=== PATIENT | male | born 1955 | race Caucasian/White ===

== ENCOUNTER → 2023-05-12 08:41 | Outpatient (CLI) | payer MEDICARE, SELFPAY ==
--- NOTE | 2023-05-12 08:50 | MR_ITS ---
FINAL REPORT CLINICAL HISTORY: ABDOMINAL AORTIC ANEURYSM. TINGLING ON LEFT SIDE OF BODY AND RIGHT HAND. FATIGUE FINDINGS: Multiplanar MR imaging of the brain was performed without contrast. There are mild chronic ischemic/gliotic changes. There is no evidence of intracranial hemorrhage or mass. The ventricular size is normal. There is no evidence of shift of the midline structures. No area of restricted diffusion is identified. The posterior fossa and brainstem have an unremarkable appearance. Normal major vessel vascular flow voids are seen. Mucosal thickening is seen of multiple sinuses. IMPRESSION: No acute intracranial abnormality. Reviewed, Interpreted and Dictated by Nahid Ashley III, MD Transcribed by Emi Amos Authenticated and [facility]
== END ==
LOC: RAD 08:42
PROVIDERS: PCP Nurse Practitioner Family; Visit Provider Nurse Practitioner Family
DX: I71.40 Abdominal aortic aneurysm, without rupture, unspecified (principal)
CPT/HCPCS: 70551

== ENCOUNTER 2024-09-19 09:27 | Outpatient (POV) | payer MEDICARE, SELFPAY ==
--- NOTE | 2024-09-19 09:43 | A.OFFVIS_ITS ---
HPI Data of Consult Patient: new to practice Consult date: 09/19/24 Requesting Physician: Tania Burrell APRN Primary Care Provider: Rico Bradshaw APRN Consult Narrative History of present illness: Mr. Draper is a 69 year old male who presents today as a new patient. He is a referral from [facility]. Today he rates his pain an 8 out of 10. Patient states his pain is all throughout his neck with radiating symptoms primarily along the left side that does go into his left shoulder and does state that he even has more drawing up sensations primarily into his left hand. Patient states this has been going on for at least 6 months if a lot longer and describes it as a sharp stabbing sensation that does interfere with his ability perform activities of daily living such as cooking and cleaning. He states he has limited range of motion in his neck and does have trouble sleeping due to the worsening pain and has a lot of difficulty getting comfortable due to the sensations. He states it is pretty much constant and that the neurosurgeon was not recommending surgical intervention however wanted to try more conservative t herapies. Patient states he has had injections in his low back in the past and they did help however denies any neck injections. Patient has tried heat and vibration and states this does help a little bit. He states he has tried ice but it did not seem to do his well and has not used this option as much. He has tried topicals with some help. Patient is on gabapentin and states this helps a little bit. He does state that he feels like both his hands have very poor manager furniture and that he frequently drops things. Patient does state that he was on other medications in the past however had kidney issues and had to stop taking those. He has been to chiropractor for his neck however felt like it made no additional change and it did actually worsen his pain. He has continued at home stretching exercise that was physician guided with no additional changes.Patient is currently managed with gabapentin from his PCP. His Tenzin has been reviewed and is appropriate. CC: Tania Burrell APRN [facility] Disclaimer: The information contained in this section may have been updated after the patient was seen, as this information can be updated by other users. Medical History (Updated 09/19/24 @ 10:12 by Tania Burrell APRN) History of aneurysm Neck pain Hyperlipidemia Hypertension Diabetes Anxiety Family History (Updated 08/02/23 @ 09:29 by Makenzie Casey) Other Cancer Coronary artery disease Diabetes Heart attack Social History (Updated 08/02/23 @ 09:30 by Makenzie Casey) Smoking Status: Former smoker alcohol intake: current alcohol intake frequency: holidays/special occasions only substance use type: denies use current occupational status: retired Travel in the last 8 weeks: None household members: spouse housing: house marital status: Review of Systems Review of Systems Review of systems:: pertinent systems reviewed and negative unless documented below Review of systems (narrative): Review of Systems: General: No recent weight changes, no fever, no sleep disturbances Respiratory: No cough, no shortness of air, no recurring pulmonary infections Cardiovascular/peripheral vascular: No chest pain, no palpitations, no edema, no shortness of breath Gastrointestinal: No new onset incontinence, normal bowel movements reported Genitourinary: No new onset incontinence Musculoskeletal: Neck pain, left shoulder pain, bilateral hand weakness, poor manager furniture Psychiatric: [Normal mood/affect] Neurological: [Denies weakness in extremities], [denies balance issues] Meds Home Medications and Allergies Home Medications ?Medication ?Instructions ?Recorded ?Confirmed ?Type albuterol sulfate 90 mcg/actuation 2 puff inhalation PRN 08/02/23 08/02/23 History aerosol inhaler atorvastatin 20 mg tablet 20 mg PO HS 08/02/23 08/02/23 History cholecalciferol (vitamin D3) 125 125 mcg PO DAILY 08/02/23 08/02/23 History mcg (5,000 unit) capsule ergocalciferol (vitamin D2) 1,250 50,000 unit PO WEEKLY 08/02/23 08/02/23 History mcg (50,000 unit) capsule (Vitamin D2) famotidine 40 mg tablet 40 mg PO DAILY 08/02/23 08/02/23 History fenofibrate 160 mg tablet 160 mg PO DAILY 08/02/23 08/02/23 History levocetirizine 5 mg tablet 5 mg PO DAILY 08/02/23 08/02/23 History linagliptin 5 mg tablet (Tradjenta) 5 mg PO DAILY 08/02/23 08/02/23 History lisinopril 5 mg tablet 5 mg PO DAILY 08/02/23 08/02/23 History metoprolol succinate 25 mg 25 mg PO DAILY 08/02/23 08/02/23 History tablet,extended release 24 hr multivitamin 1 tab PO DAILY 08/02/23 08/02/23 History sildenafil 50 mg tablet 50 mg PO DAILY PRN 08/02/23 08/02/23 History terazosin 10 mg capsule 10 mg PO DAILY 08/02/23 08/02/23 History New Prescriptions to Start Prescriptions: Allergies Allergy/AdvReac Type Severity Reaction Status Date / Time No Known Allergies Allergy Unverified 08/02/23 09:18 Objective Narrative: Physical Exam: General: Alert and oriented x3, no acute distress, pleasant and cooperative Lungs: Respirations even and unlabored, symmetrical chest expansion Eyes: PERRL Musculoskeletal: Flexion and extension of cervical [spine] somewhat guarded secondary to pain, [antalgic gait noted] positive Spurling's test Neurological: Speech clear, no gross sensory deficit Additional findings Additional findings: [facility] imaging September 05, 2024 MRI cervical spine without contrast findings C2-C3 level shows no evidence of disc herniation infection or spinal stenosis. Neuroforamina patent. C3-C4 level shows degenerative disc without focal disc herniation or central spinal stenosis. Mild bilateral foraminal stenosis. C4- C5 level shows degenerative disc disease without focal disc herniation or central spinal stenosis. Mild bilateral foraminal stenosis. C5-C6 level shows left-sided disc herniation impinging on the left C6 nerve root. Mild right, moderate left foraminal stenosis. C6 or C7 level shows disc herniation indenting the anterior aspect of the thecal sac. Moderate bilateral foraminal stenosis. C7-T1 level shows degenerative disc disease without focal disc hernia tion or central canal stenosis. Neuroforamina patent. T1-2 level shows no evidence of disc herniation or spinal stenosis. Neuroforamina patent Assessment and Plan *Assessment and plan (1) Degenerative disc disease, cervical: Status: Acute Category: Medical Code(s): M50.30 - Other cervical disc degeneration, unspecified cervical region (2) Cervical radiculopathy: Status: Acute Category: Medical Code(s): M54.12 - Radiculopathy, cervical region (3) Cervical nerve root impingement: Status: Acute Category: Medical Code(s): G54.2 - Cervical root disorders, not elsewhere classified Plan Patient is experiencing worsening pain in their neck with radiating primarily into the left upper extremity however does have symptoms into the right as well with tingling sensations and drawing up with weak manager furniture. Patient did have limited range of motion of her cervical spine with a positive Spurling's test. I did discuss with the patient that I do believe they would benefit from a cervical epidural steroid injection. Risk and benefits were discussed with patient and they would like to proceed forward with this plan of care. Patient has tried and failed conservative therapy including oral medications, heat and ice, topicals, at home stretching exercise for longer than 12 weeks that was physician guided. Patient has not had any cervical epidurals in the past. Patient's most recent imaging did show nerve root impingement. Patient will be scheduled for a GOLRY C5-C6 under fluoroscopy. Patient denies any blood t hinners. Patient has been instructed to contact the clinic with any concerns before the next appointment. Dr. Rowland has reviewed this note and agrees with this plan of care. This note was dictated using voice recognition software and make contain errors or omissions. All injections are used with Lidocaine, Bupivacaine and Depo Medrol. Occasionally urine drug screen is needed to verify patient's compliance with our office pain contract. This is ordered based off specific treatments related to chronic pain with the potential to abuse certain medications.
[2024-09-19 10:07] VITALS: BP 162/80; PULSE 64; RESP 18; O2SAT 93; BMI 39.9
== END 2024-09-19 23:59 | disposition home or self-care (01) ==
LOC: SC.PAIN 09:36
PROVIDERS: PCP Nurse Practitioner Family; Visit Provider Nurse Practitioner Family
DX: M50.10 Cervical disc disorder with radiculopathy, unspecified cervical region (principal); Z73.89 Other problems related to life management difficulty; Z87.891 Personal history of nicotine dependence
CPT/HCPCS: 99202; G0463

== ENCOUNTER 2024-10-15 09:34 | Day surgery (SDC) | payer MEDICARE, SELFPAY ==
[2024-10-15 09:44] VITALS: BP 170/89; PULSE 67; RESP 18; TEMP 37.1; O2SAT 96; BMI 39.9
[2024-10-15] MEDS: methylPREDNISolone ACETATE 80MG/ML VIAL 80 MG (10:01)
[2024-10-15 10:02] VITALS: BP 124/81; PULSE 69; RESP 18; O2SAT 93
[2024-10-15 10:04] VITALS: BP 124/81; PULSE 69; RESP 18; O2SAT 93
[2024-10-15] MEDS: IOPAMIDOL-200 (41%);10ML VIAL 10 ML IV (10:04)
--- NOTE | 2024-10-15 10:05 | EXP.PAIN.PRO ---
Procedure Date: 10/15/24 Time: 09:45 Anesthesiologist:: Tonny Moody CRNA Complications:: None
--- NOTE | 2024-10-15 10:16 | P.PCN_ITS ---
Procedure Date: 10/15/24 Time: 09:30 Anesthesiologist:: Tonny Moody CRNA Complications:: None Pre-procedure Diagnosis:: Cervical spine multilevels. Cervical radiculopathy. Post-procedure Diagnosis:: Same. Indications for Procedure:: Patient is a very pleasant 69-year-old male who comes our clinic today for cervical epidural steroid injection. Patient describes posterior cervical neck pain is constant, dull, aching. Patient also reports bilateral arm radicular symptoms at times. He rates his pain 7/10. Procedure Details:: Procedure:Cervical epidural steroid injection Informed consent was obtained and the risks and benefits of the procedure were explained to the patient. The patient was taken to the procedure room and noninvasive monitors placed, including noninvasive blood pressure cuff and pulse oximeter. The neck was prepped using Chloraprep as a cleansing solution. The C6- C7 interspace was viewed using fluroscopy. The skin and subcutaneous tissues were anesthetized using lidocaine 1.5% and a 25-gauge needle. After this an 18- gauge Touhy epidural needle was placed into the C6-C7 interspace under fluroscopy guidance and advanced using loss of resistance to air until the epidural space was encountered. After confirmation of needle placement in the epidural space using contrast dye, a solution containing normal saline, 2 mL and Depo-Medrol 80 mg was incrementally injected into the cervical epidural space.~ The patient tolerated the procedure well with no complications. The patient was observed in the Pain Clinic and then discharged home neurologically intact. Plan and Disposition:: Patient was discharged without incident.
== END 2024-10-15 10:10 | disposition home or self-care (01) ==
PROVIDERS: PCP Nurse Practitioner Family; Visit Provider Nurse Anesthetist, Certified Registered
DX: M50.30 Other cervical disc degeneration, unspecified cervical region (principal); M54.12 Radiculopathy, cervical region
CPT/HCPCS: 62321; J1010; Q9966

== ENCOUNTER 2024-10-29 11:07 | Outpatient (POV) | payer MEDICARE, SELFPAY ==
[2024-10-29 11:45] VITALS: BP 111/81; PULSE 65; RESP 18; O2SAT 93; BMI 39.3
--- NOTE | 2024-10-29 11:45 | EXP.PAIN.SOA ---
[facility] Disclaimer: The information contained in this section may have been updated after the patient was seen, as this information can be updated by other users. Medical History History of aneurysm Neck pain Hyperlipidemia Hypertension Diabetes Anxiety Family History Other Cancer Coronary artery disease Diabetes Heart attack Social History Smoking Status: Former smoker alcohol intake: current alcohol intake frequency: holidays/special occasions only substance use type: denies use current occupational status: retired Travel in the last 8 weeks: None household members: spouse housing: house marital status: PM Subjective & Objective Subjective Subjective:: Patient is a pleasant 69-year-old male who presents today for follow-up of cervical epidural steroid injection C6-C7 on 10/15/2024. Today he rates his pain a 5 out of 10. He does state that it did take a couple of days for it to really kick in and then has helped some. Patient is rating currently about 25% improvement. Patient denies any new falls or injuries. He does state it is still that same pain that he previously had. Patient does state that he has some altered kidney function and that he is seeing his primary care regarding this. He is prescribed gabapentin from his primary care. His Tenzin has been reviewed and is appropriate. Review of Systems: General: No recent weight changes, no fever, no sleep disturbances Respiratory: No cough, no shortness of air, no recurring pulmonary infections Cardiovascular/peripheral vascular: No chest pain, no palpitations, no edema, no shortness of breath Gastrointestinal: No new onset incontinence, normal bowel movements reported Genitourinary: No new onset incontinence Musculoskeletal: Neck pain Psychiatric: [Normal mood/affect] Neurological: [Denies weakness in extremities], [denies balance issues] Pain at rest (0-10 scale): 5 Objective Objective:: Physical Exam: General: Alert and oriented x3, no acute distress, pleasant and cooperative Lungs: Respirations even and unlabored, symmetrical chest expansion Eyes: PERRL Musculoskeletal: Flexion and extension of cervical [spine] somewhat guarded secondary to pain, [antalgic gait noted] Neurological: Speech clear, no gross sensory deficit Has patient had previous pain injection?: Yes Percent improvement in pain since last injection: 25% Conservative treatment options previously tried: Home exercise plan Length of treatment: Longer than 12 weeks Meds Home Medications and Allergies Home Medications ?Medication ?Instructions ?Recorded ?Confirmed ?Type albuterol sulfate 90 mcg/actuation 2 puff inhalation DIRECTED PRN 08/02/23 10/15/24 History aerosol inhaler Breathing Problems atorvastatin 20 mg tablet 20 mg PO HS 08/02/23 10/15/24 History cholecalciferol (vitamin D3) 125 125 mcg PO DAILY 08/02/23 10/15/24 History mcg (5,000 unit) capsule ergocalciferol (vitamin D2) 1,250 50,000 unit PO WEEKLY 08/02/23 10/15/24 History mcg (50,000 unit) capsule (Vitamin D2) famotidine 40 mg tablet 40 mg PO DAILY 08/02/23 10/15/24 History fenofibrate 160 mg tablet 160 mg PO DAILY 08/02/23 10/15/24 History levocetirizine 5 mg tablet 5 mg PO DAILY 08/02/23 10/15/24 History linagliptin 5 mg tablet (Tradjenta) 5 mg PO DAILY 08/02/23 10/15/24 History lisinopril 5 mg tablet 5 mg PO DAILY 08/02/23 10/15/24 History metoprolol succinate 25 mg 25 mg PO DAILY 08/02/23 10/15/24 History tablet,extended release 24 hr multivitamin 1 tab PO DAILY 08/02/23 10/15/24 History sildenafil 50 mg tablet 50 mg PO DAILY PRN . 08/02/23 10/15/24 History terazosin 10 mg capsule 10 mg PO DAILY 08/02/23 10/15/24 History New Prescriptions to Start Prescriptions: Allergies Allergy/AdvReac Type Severity Reaction Status Date / Time No Known Allergies Allergy Verified 10/15/24 09:44 Assessment and Plan *Assessment and plan (1) Cervical radiculopathy: Status: Acute Category: Medical Code(s): M54.12 - Radiculopathy, cervical region (2) Degenerative disc disease, cervical: Status: Acute Category: Medical Code(s): M50.30 - Other cervical disc degeneration, unspecified cervical region Plan I did discuss with the patient that I will order him a compounded cream and we did discuss due to his altered kidney function that using medications that are safer on the kidneys is highly recommended. Patient was counseled that Flexeril has been shown to be safe for people with kidney issues. I will send in a 1 month supply of this medication. Patient states he has been on this in the past and did well with that. Patient is agreeable to this option. I will send in 10 mg twice daily as needed. Patient will return to clinic in 1 month. Patient has been instructed to contact the clinic with any concerns before the next appointment. Dr. Rowland has reviewed this note and agrees with this plan of care. This note was dictated using voice recognition software and make contain errors or omissions. All injections are used with Lidocaine, Bupivacaine and Depo Medrol. Occasionally urine drug screen is needed to verify patient's compliance with our office pain contract. This is ordered based off specific treatments related to chronic pain with the potential to abuse certain medications.
== END 2024-10-29 23:59 | disposition home or self-care (01) ==
PROVIDERS: PCP Nurse Practitioner Family; Visit Provider Nurse Practitioner Family
DX: M50.10 Cervical disc disorder with radiculopathy, unspecified cervical region (principal); Z87.891 Personal history of nicotine dependence
CPT/HCPCS: 99212; G0463

== ENCOUNTER 2024-12-15 20:24 | Emergency (ER) | payer MEDICARE, SELFPAY ==
--- OUTSIDE RECORDS SUMMARY | 2024-12-12 10:35 | XMS_ITS | Encounter Summary ---
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 Instrument Mechanic Weapons System Name Role Phone Khadar Rai MD Unavailable Unavailable Encounter Details Date Type Department Care Team (Latest Contact Info) Description 12/12/2024 10:35 AM EDT [facility] [address] [place] [address] Lucien Vazquez MD [address] [place] [address] DDD (degenerative disc disease), cervical; Cervical pain Social History Tobacco Use Types Packs/Day Years Used Date Smoking Tobacco: Former Cigarettes Smokeless Tobacco: Never Alcohol Use Standard Drinks/Week Comments Yes 0 (1 standard drink = 0.6 oz pur e alcohol) AUDIT-C Answer Date Recorded Frequency of Alcohol Consumption Never 05/07/2019 Average Number of Drinks Not on file 019 Frequency of Binge Drinking Not on file 04/10 Sexually Active Control Partners Comments Yes Sex and Gender Information Value Date Recorded Sex Assigned at Not on file Legal Sex Male 4:30 PM EDT Gender Identity Not on file Sexual Orientation Not on file documented as of this encounter Plan of Treatment Upcoming Encounters Date Type Department Care Team (Late st Contact Info) Description 01/27/2025 11:15 AM EDT Office Visit [place] [address] [place] [id number] Hamzah Santana MD [address] [place] [id number] documented as of this encounter Procedures Procedure Name Priority Date/Time Associated Diagnosis Comments XR CERVICAL SPINE AP LATERAL FLEXION EXTENSION Routine 12/12/2024 11:44 AM EDT DDD (degenerative disc disease), cervical Cervical pain documented in this encounter Results * XR CERVICAL SPINE AP LATERAL FLEXION EXTENSION (12/12/2024 11:44 AM EDT) Narrative Genericuser, Yassine - 12/12/2024 11:44 AM EDT Please see physician's note from office encounter for x-ray imaging result us Lucien Vazquez MD IMG DIAGNOSTIC IMAGING OR DERABLES Final Result documented in this encounter Visit Diagnoses Diagnosis DDD (degenerative disc disease), cervical Degeneration of cervical intervertebral disc Cervical pain Cervicalgia documented in this encounter Care Teams Instrument Mechanic Weapons System Relationship Specialty Start Date End Date Khadar Rai MD Internal Medicine-Rheumatology 05/07/19 documented as of this encounter
--- OUTSIDE RECORDS SUMMARY | 2024-12-12 11:15 | XMS_ITS | Encounter Summary ---
Author Organization [facility] Address [address] [place] [address] Care Team Providers Care Delivery Technician Name Role Phone Khadar Rai MD Unavailable Unavailable Reason for Referral * Consultation (Routine) - Pending Review Specialty Diagnoses / Procedures Referred By Saskia t Referred To Contact Orthopedic Surgery Diagnoses DDD (degenerative disc disease), cervical Cervical pain Cervical radiculopathy Lucien Vazquez MD [address] [place] [address] Phone: tel: fax: Hamzah Santana MD [address] [place] [address] Phone: tel: fax: Referral ID Status Reason Start Date Expiration Date V isits Requested Visits Authorized [id number] Pending Review 12/12/2024 12/12/2025 1 1 Reason for Visit * Reason Comments Pain Encounter Details Date Type Department Care Team (Late st Contact Info) Description 12/12/2024 11:15 [place] [address] Lucien Vazquez MD [address] [place] [address] DDD (degenerative disc disease), cervical (Primary Dx); Cervical pain; Cervical radiculopathy; Foraminal stenosis of cervical region; Cervical stenosis of spinal canal; Neck pain; Cervical spondylosis Social History Tobacco Use Types Packs/Day Years [...] on file documented as of this encounter Last Filed Vital Signs Vital Sign Reading Time Taken Comments Blood Pressure - - Pulse - - Temperature - - Respiratory Rate - - Oxygen Saturation - - Inhaled Oxygen Concentration - - Weight 131.5 kg (290 lb) 12/12/2024 10:38 AM EDT Height 182.9 cm (6') 12/12/2024 10:38 AM EDT Body Mass Index 39.33 12/12/2024 10:38 AM EDT documented in this encounter Progress Notes * Lucien Vazquez MD - 12/12/2024 11:15 AM EDT Images from the original note were not included. 12/13/24 CHIEF COMPLAINT: Chief Complaint Patient presents with ??? Neck - Pain HISTORY OF PRESENT ILLNESS: 69 y.o. male Neck pain Started in 2019 Left side worse than right side Left arm pain Numbness and tingling Arm pain for 2 years Occasionally on the right Some worsening balance and manual dexterity issues that are mild No bowel or bladder changes no saddle anesthesia Previous Treatment: Interventional pain management in the past Epidural injections with minimal effect Past Medical History: Body mass index is 39.33 kg/m??. Baby aspirin Diabetes CKD Aortic aneurysm repair scheduled for December 2024 Heart cath 11/28/2024 Past Medical History: Diagnosis Date ??? Hyperlipidemia Social History: Non-smoker reports that he has quit smoking. His smoking use included cigarettes. He has never used smokeless tobacco. He reports current alcohol use. PHYSICAL EXAM: C-Spine Exam Inspection/Palpation: Points to the midline and paraspinal cervical spine Range of Motion: Guarded range of motion cervical spinal flexion extension Motor: Intact throughout Sensation: Intact throughout Special Tests: Spurling's test positive bilaterally Reflexes: Barbi's negative bilaterally Gait & station: Stable Diagnostic Testing: C spine X rays: 4 views with flexion extension. Independently reviewed Multilevel degenerative disc disease in the cervical spine C spine MRI: Independently reviewed Multilevel degenerative disc disease in the cervical spine C4-5 no significant neural impingement C5-6 moderate left-sided foraminal stenosis C6-7 moderate bilateral foraminal stenosis C7-T1 no significant neural impingement Impression: 1. DDD (degenerative disc disease), cervical XR CERVICAL SPINE AP LATERAL FLEXION EXTENSION AMB REFERRAL TO ORTHOPEDIC SURGERY 2. Cervical pain XR CERVICAL SPINE AP LATERAL FLEXION EXTENSION AMB REFERRAL TO ORTHOPEDIC SURGERY 3. Cervical radiculopathy AMB REFERRAL TO ORTHOPEDIC SURGERY 4. Foraminal stenosis of cervical region 5. Cervical stenosis of spinal canal 6. Neck pain 7. Cervical spondylosis Medical decision Making: Discussion was had with the patient. He does have some levels of foraminal stenosis. He does have some symptoms of radiculopathy. However, most of his symptoms are neck pain. He is a relatively high risk surgical candidate given his other medical issues. I recommend interventional pain management. I like to see him back if his arms become a bigger issue. Currently arms only bother him on occasion. Plan: Referral interventional pain management Hold off on the surgical intervention Follow-up with me if radicular symptoms become a bigger part of this Reviewed imaging with patient Activity as tolerated Lucien Vazquez MD [facility] Disclaimer: This note was partially transcribed via voice recognition software. Though all efforts were made to ensure accuracy, it is possible this note may contain immigration consultant errors. Please bring any inaccuracies discovered to my attention so I may make a corrective addendum in a timely fashion. documented in this encounter Plan of Treatment Upcoming Encounters Date Type Department Care Team (Late st Contact Info) Description 01/27/2025 11:15 AM EDT [facility] [place] [address] Hamzah Santana MD [address] [place] [address] Scheduled Referrals Name Type Priority Associated Diagnoses Orde r Schedule AMB REFERRAL TO ORTHOPEDIC SURGERY Outpatient Referral Routine DDD (degenerative disc disease), cervical Cervical pain Cervical radiculopathy Ordered: 12/12/2024 documented as of this encounter Results * XR CERVICAL SPINE AP LATERAL FLEXION EXTENSION (12/12/2024 11:44 AM EDT) Narrative Genericuser, Audit - 12/12/2024 11:44 AM EDT Please see physician's note from office encounter for x-ray imaging result Lucien Vazquez MD IMG DIAGNOSTIC IMAGING OR DERABLES Final Result documented in this encounter Visit Diagnoses Diagnosis DDD (degenerative disc disease), cervical- Primary Degeneration of cervical intervertebral disc Cervical pain Cervicalgia Cervical radiculopathy Brachial neuritis or radiculitis nos Foraminal stenosis of cervical region Spinal stenosis in cervical region Cervical stenosis of spinal canal Spinal stenosis in cervical region Neck pain Cervicalgia Cervical spondylosis Cervical spondylosis without myelopathy DDD (degenerative disc disease), cervical Degeneration of cervical intervertebral disc Cervical pain Cervicalgia documented in this encounter Care Teams Delivery Technician Relationship Specialty Start Date End Date Khadar Rai MD Internal Medicine-Rheumatology 05/07/19 documented as of this encounter
[2024-12-15] VITALS (7 sets, daily range): BP systolic 124–190; BP diastolic 49–105; PULSE 84–91; RESP 16–25; TEMP 36.9; O2SAT 87–91; BMI 40.0
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
--- NOTE | 2024-12-15 20:42 | ECG_ITS ---
APPROVED REPORT Exam: Resting ECG HR:80 bpm ECG Measurements Heart Rate 80 AXES ND 203 P 40 QRSd 126 QRS -51 QT 363 T 70 QTc 399 Conclusion SINUS RHYTHM LEFT ANTERIOR FASCICULAR BLOCK [QRS AXIS <= -45, QR IN I, RS IN II] ABNORMAL ECG UNCONFIRMED REPORT Electronically signed by : LUPE SOLER, 12/16/2024 06:41:03
[2024-12-15 20:45] LABS: Basophils % 0.2 % (0.1-2.0); Eosinophils # 0.1 Kmm3 (0.0-0.4); Hematocrit 40.1 % (42.0-52.0); Hemoglobin 12.7 g/dL (14.1-18.0); Immature Granulocytes # 0.07 10^3uL; Immature Granulocytes % 0.6 %; Lymphocytes # 0.5 K/mm3 (0.7-4.5); Lymphocytes % 3.8 % (10-50); Mean Corpuscular HGB Conc 31.7 g/dL (31.8-35.4); Mean Corpuscular Hemoglobin 29.3 pg (27.0-31.2); Mean Corpuscular Volume 92.6 fl (80-94); Mean Platelet Volume 10.4 fl (7.4-10.4); Monocytes # 0.8 K/mm3 (0.1-1.0); Monocytes % 6.7 % (1.7-9.3); Neutrophils # 10.5 K/mm3 (1.8-7.8); Neutrophils % 87.7 % (37.0-80.0); Nucleated Red Blood Cells # 0 10^3/uL; Nucleated Red Blood Cells % 0 %; Platelet Count 147 K/mm3 (142-424); Red Blood Count 4.33 M/mm3 (4.60-6.20); Red Cell Distribution Width 13.9 % (11.5-17.5); Red Cell Distribution Width-SD 46.7 fL
[2024-12-15 20:47] LABS: MANUAL DIFFERENTIAL MANUAL DIFFERENTIAL (MANUAL DIFF)
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
[2024-12-15 20:51] LABS: Albumin Level 3.5 g/dl (3.5-5.0); Chloride 109 mmol/L (98-107); Potassium 5.9 mmoL/L (3.5-5.1); Sodium 138 mmol/L (136-145)
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
--- OUTSIDE RECORDS SUMMARY | 2024-12-15 20:52 | XMS_ITS | Continuity of Care Document ---
Author Organization [facility] Address [address] [place] [address] Care Team Providers Care Speech Therapist Early Intervention Name Role Phone LEONIE SLATER Director Global Market Research YULIYA VARELA Referring Provider [phone] DONNIE BRADSHAW Primary Care Provider [phone] Assessment No assessment recorded. Plan of Treatment Reminders Order Date Submit Date Provider Last Modified By Organization Details Last Modified Time Details Appointments None recorded. Lab None recorded. Referral None recorded. Procedures None recorded. Surgeries None recorded. Imaging None recorded. Medication Orders gabapentin 300 mg capsule [address], [address], 09:31:20 Patient TargetsNo targets recorded. Patient InstructionsNo instructions recorded. Reason for Referral None Reported. Results Created Date Observation Date Name Description Value Unit Range Abnormal Flag Note LastModifiedBy Organization Detail LastModifiedTime 11/26/19 25 10/31/2024 NM, myoca rdial perfu jos scan, w/ stres s No observ ation record ed. [facility] Alistaira Michael Mccord, [place], [address], 11/25/2024 15:36:59 Result Notes None recorded. Problems Name Problem SNOMED Code Status Onset Date Resolution Date Notes Provider Name and Address Organization Details Recorded Time Diabetes mellitus 35169204 Active 2016 Donnie Bradshaw APRN [address], [place], [address] , [place] - [facility] 2 14:45:00 Hyperten sive disorder 41356119 Active 2016 Donnie Bradshaw, [employer] [address], [place], [address] , [place] [facility] 2 14:45:57 Arthriti s 3253512 Active 2016 Donnie Bradshaw APRN [address], [place], [address] , [place] [facility] 2 14:44:57 Neuropat hy 493670634 Active 2016 Donnie Bradshaw APRN [address], [place], [address] , [place] [facility] 2 14:45:09 Injury of foot 361459779 Completed 201604/29/2019 Mary Ann ivan, [place] - [facility] 9 09:29:52 Benign prostati c hyperpla rozina 931346618 Active 2016 Donnie Bradshaw APRN [address], [place], [address] , [place] [facility] 2 14:44:53 Hypogona dism 03150841 Active 2016 Donnie Bradshaw APRN [address], [place], [address] , [place] [facility] 2 14:46:04 Umbilica l hernia 324116853 Active 2018 Not Available [facility] 12:41:54 Mixed hyperlip idemia 694654128 Active 2019 Donnie Bradshaw APRN [address], [place], [address] , [place] [facility] 2 14:49:04 Sleep apnea 66307921 Active 2019 Donnie Bradshaw, [employer] [address], [place], [address] , [place] [facility] 2 14:45:58 Irritabi lity and anger 252823780 Completed 202007/08/2021 Mary Ann Murphy null, [place] - [facility] 1 08:58:45 Suspecte d COVID-19 [id number] Completed 03/05/2021 Removal Reason: Problem added by user [email or web address] from the COVID-19 watch flag Crystal Miguelito null, [place] - [facility] 16:51:44 SARS-CoV -2 Completed 04/09/2021 Removal Reason: Problem added by user [email or web address] from the COVID-19 watch flag Ludivina Gia null, [place] - [facility] 1 13:47:52 Anxiety 25287120 Active 2021 Donnie Bradshaw, [employer] [address], [place], [address] , [place] [facility] 2 14:44:51 Gastroes ophageal reflux disease without esophagi tis 021471258 Active 2021 Donnie rBadshaw, [employer] [address], [place], [address] , [place] [facility] 2 14:45:03 Chronic thoracic back pain 74222944482 9103 Active 2021 Donnie Bradshaw, [employer] [address], [place], [address] , [place] [facility] 2 14:45:33 Abdomina l aortic aneurysm 331963822 Active 2021 Donnie Bradshaw, [employer] [address], [place], [address] , [place] [facility] 2 15:05:31 Ear pressure sensatio n 659775427 Active 2022 Litzy Lanza, [employer] [address], [place], [address] , [place] [facility] 3 15:12:56 Abdomina l aortic aneurysm without rupture 04169581 Active 2024 Donnie Bradshaw, [employer] [address], [place], [address] , [place] [facility] 5 09:31:59 Coronary arterios clerosis 22329449 Active 2024 Donnie Bradshaw, [employer] [address], [place], [address] , [place] - [facility] 5 09:32:27 Chronic kidney disease stage 3B 951021433 Active 2024 Donnie Bradshaw, [employer] [address], [place], [address] , [place] - [facility] 5 09:33:39 Congesti ve heart failure 56470040 Active 2024 Sanam Argueta [facility] [place] - [facility] 5 11:09:50 Problem Notes None recorded. Procedures Surgical History Date Name Laterality Status Provider Name and Address Organization Details Recorded Time 10/09/19 25 Advance Care Planning completed Sanam Argueta [place] - [facility] 10/08/2024 08:49:21 10/09/19 25 Functional Status Assessed completed Sanam Argueta [place] - [facility] 025 08:49:21 02/08/20 24 Bladder Scan completed Danielle Aguayo [employer] [address], [place], [address], [place] - [facility] 02/08/2024 11:05:28 10/03/19 24 Advance Care Planning completed Litzy Underwood [place] - [facility] 10/03/2023 08:24:38 10/03/19 24 Functional Status Assessed completed Litzy Underwood [place] - [facility] 10/03/2023 08:24:38 02/14/20 23 Cerumen Removal completed Donnie Bradshaw APRN [address], [place], [address], [place] - [facility] 02/13/2023 13:29:03 11/22/19 23 Cerumen Removal completed Litzy Lanza [employer] [address], [place], [address], [place] - [facility] 11/23/2022 12:35:56 09/27/19 23 Cerumen Removal completed Donnie Bradshaw [employer] [address], [place], [address], [place] - [facility] 09/26/2022 13:09:16 07/20/19 23 Cryosurgery Dermatology completed Marina Arreaga [employer] [address], [place], [address]R[place] - [facility] 07/20/2022 17:07:15 07/15/19 23 Advance Care Planning completed Litzy Underwood [place] - [facility] 07/15/2022 08:14:44 07/15/19 23 Functional Status Assessed completed Litzy Kj [place] - [facility] 07/15/2022 08:14:44 07/08/20 21 Advance Care Planning completed Crystal Miguelito [place] [facility] 07/08/2021 08:38:29 07/08/20 21 Functional Status Assessed completed Crystal Miguelito [place] [facility] 07/08/2021 08:38:29 09/25/19 21 Diastolic B/P 80-89 mm Hg completed Crystal Miguelito [place] - [facility] 09/24/2020 09:51:29 09/25/19 21 Systolic B/P 130-139 mm Hg completed Crystal Miguelito [place] [facility] 09/24/2020 09:51:24 06/16/20 20 Diastolic B/P 80-89 mm Hg completed Crystal Miguelito [place] [facility] 06/16/2020 09:13:48 06/16/20 20 Systolic B/P 130-139 mm Hg completed Crystal Miguelito [place] [facility] 06/16/2020 09:13:45 03/20/20 20 Systolic B/P less than 130 mm Hg completed Crystal Miguelito [place] [facility] 03/20/2020 14:41:09 03/20/20 20 Diastolic B/P less than 80 mm Hg completed Crystal Miguelito [place] [facility] 03/20/2020 14:41:11 02/20/20 20 Systolic B/P less than 130 mm Hg completed Crystal Miguelito [place] [facility] 02/20/2020 13:42:53 02/20/20 20 Diastolic B/P less than 80 mm Hg completed Crystal Miguelito [place] [facility] 02/20/2020 13:42:50 02/11/20 20 Diastolic B/P 80-89 mm Hg completed Crystal Miguelito [place] [facility] 02/11/2020 10:48:15 02/11/20 20 Systolic B/P 130-139 mm Hg completed Crystal Miguelito [place] [facility] 02/11/2020 10:48:13 11/05/19 20 Diastolic B/P 80-89 mm Hg completed Crystal Miguelito [place] [facility] 11/05/2019 09:27:57 11/05/19 20 Systolic B/P greater than or equal to 140 mm Hg completed Crystal Miguelito [place] [facility] 11/05/2019 09:27:53 09/06/19 20 Diastolic B/P less than 80 mm Hg completed Crystal Miguelito [place] [facility] 09/06/2019 13:19:30 09/06/19 20 Systolic B/P 130-139 mm Hg completed Crystal Miguelito [place] [facility] 09/06/2019 13:19:22 04/29/20 19 Advance Care Planning completed Crystal Miguelito [place] [facility] 04/29/2019 08:34:35 04/29/20 19 Functional Status Assessed completed Savannah Michellerod [place] - [facility] 04/29/2019 08:34:35 02/29/20 19 Skin Tag Removal completed Marina Arreaga APRN [address], [place], [address], [email or web address] - [facility] 02/28/2019 16:58:27 02/29/20 19 Shave Biopsy, Scalp, Neck, Hands, Feet, Genitalia completed Marina Arreaga APRN [address], [place], [address], [place] - [facility] 02/28/2019 16:57:48 colonoscopy completed Sanam Argueta [place] - [facility] 10/08/2024 09:33:30 dental surgery completed Litzy Underwood [place] - [facility] 12/10/2024 08:15:54 Colonoscopy completed Litzy Underwood [place] - [facility] 12/10/2024 08:15:54 Vasectomy completed Litzy Underwood [place] - [facility] 12/10/2024 08:15:54 Unlisted px foot/toes completed Aimee Morgan [place] - [facility] 02/24/2017 09:14:12 Imaging Results None recorded. Procedure Notes None recorded. Medical Equipment None Reported. Allergies No known drug allergies Medications Name Sig Start Date Stop Date Status Note LastModified by Organization Details LastModified Time Prescript ion - Prior Authoriza tion Request 04/20 completed Not Available Not Available Not Available celecoxib 200 mg capsule 04/20 completed Not Available Not Available Not Available cyclobenz aprine 10 mg tablet TAKE 1 TABLET BY MOUTH TWICE DAILY 11/11 completed Not Available Not Available Not Available amoxicill in 500 mg capsule Take 1 capsule twice a day by oral route for 10 days. 01/03 completed Not Available Not Available Not Available furosemid e 40 mg tablet TAKE ONE (1) TABLET BY MOUTH EVERY MONDAY- -MONDAY active Not Available Not Available No t Available terazosin 5 mg capsule Take 1 capsule every day by oral route for 90 days. 10/17 completed Not Available Not Available Not Available methocarb magnolia 500 mg tablet take 1-2 tablets 3 times per day as needed 11/04 completed Not Available Not Available Not Available metformin 500 mg tablet TAKE 1 TABLET TWICE DAILY 07/18 completed Not Available Not Available Not Available prednison e 10 mg tablet Take 1 tablet twice a day by oral route for 5 days. 10/13 completed Not Available Not Available Not Available gabapenti n 600 mg tablet Take 1 tablet 3 times a day by oral route for 30 days. 08/19 completed Not Available Not Available Not Available doxycycli ne hyclate 100 mg capsule Take 1 capsule twice a day by oral route for 7 days. 2024 active Not Available Not Available Not Avai lable atorvasta tin 20 mg tablet (20 mg) active Not Available Not Available Not Available famotidin e 10 mg tablet Take 1 tablet every day by oral route. 02/10 completed Not Available Not Available Not Available sildenafi l 50 mg tablet Take 1 tablet every day by oral route. active Not Available Not Available No t Available azithromy edgar 250 mg tablet 09/06 completed Not Available Not Available Not Available tizanidin e 4 mg tablet 07/15 completed Not Available Not Available Not Available fluconazo le 150 mg tablet TAKE ONE (1) TABLET EVERY DAY BY ORAL ROUTE FOR THREE (3) DAYS. 09/23 completed Not Available Not Available Not Available metoprolo l succinate ER 50 mg tablet,ex tended release 24 hr TAKE 1 TABLET BY MOUTH EVERY DAY active Not Available Not Available No t Available hydrocodo ne 5 mg-acetam inophen 325 mg tablet Take 1 tablet twice a day by oral route for 5 days. 08/27 completed Not Available Not Available Not Available Nystop 100,000 unit/gram topical powder APPLY TO THE AFFECTED AREA(S) BY TOPICAL ROUTE TWO (2) TIMES PER DAY 03/08 completed Not Available Not Available Not Available meloxicam 15 mg tablet TAKE 1 TABLET BY MOUTH DAILY. 07/13 completed Not Available Not Available Not Available lisinopri l 20 mg tablet TAKE 1 TABLET DAILY 02/05 completed Not Available Not Available Not Available famotidin e 40 mg tablet (40 mg) active Not Available Not Available Not Available prednison e 20 mg tablet Take 1 tablet twice a day by oral route for 5 days. 10/02 completed Not Available Not Available Not Available sertralin e 100 mg tablet (100 mg) active Not Available Not Available Not Available metformin 850 mg tablet 02/24 completed Not Available Not Available Not Available doxepin 10 mg capsule Take 1 capsule every day by oral route at bedtime. 09/24 completed Not Available Not Available Not Available sulfameth oxazole 800 mg-trimet hoprim 160 mg tablet TAKE ONE (1) TABLET EVERY 12 HOURS BY ORAL ROUTE FOR 10 DAYS. 09/23 completed Not Available Not Available Not Available hydrocodo ne 10 mg-acetam inophen 325 mg tablet TAKE ONE (1) TABLET THREE (3) TIMES A DAY BY ORAL ROUTE NEEDED. 04/06 completed Not Available Not Available Not Available tramadol 50 mg tablet Take 1 tablet twice a day by oral route as needed for 3 days. 09/26 completed Not Available Not Available Not Available triamcino lone acetonide 0.1 % topical cream APPLY A THIN LAYER TO THE AFFECTED AREA(S) BY TOPICAL ROUTE TWO (2) TIMES PER DAY active Not Available Not Available No t Available simvastat in 40 mg tablet TAKE 1 TABLET BY MOUTH EVERY DAY 07/16 completed Not Available Not Available Not Available Depo-Medr ol 80 mg/mL suspensio n for injection Take 80 mg by injectio n route. 03/20 completed Not Available Not Available Not Available baclofen 20 mg tablet TAKE 1 TABLET TWICE DAILY 09/26 completed Not Available Not Available Not Available famotidin e 20 mg tablet TAKE 2 TABLETS BY MOUTH EVERY DAY 06/16 completed Not Available Not Available Not Available gabapenti n 800 mg tablet TAKE ONE (1) TABLET BY MOUTH THREE (3) TIMES DAILY. FOR NEUROPAT HIC PAIN. 03/08 completed Not Available Not Available Not Available Ear Wax Removal Drops 6.5 % INSTILL FIVE (5) DROPS INTO AFFECTED EAR(S) BY OTIC ROUTE FOR FIVE (5) DAYS ONCE A MONTH 10/02 completed Not Available Not Available Not Available Multiple Vitamins tablet 1 {tablet} by oral route. active Not Available Not Available No t Available baclofen 10 mg tablet TAKE ONE (1) TABLET BY MOUTH TWICE DAILY NEEDED 04/06 completed Not Available Not Available Not Available hydrocodo ne 7.5 mg-acetam inophen 325 mg tablet Take 1 tablet 3 times a day by oral route as needed. 09/24 completed Not Available Not Available Not Available simvastat in 20 mg tablet Take 1 tablet every day by oral route for 90 days. 11/07 completed Not Available Not Available Not Available clotrimaz ole-betam ethasone 1 %-0.05 % topical cream APPLY TO THE AFFECTED AND SURROUND ING AREAS OF SKIN BY TOPICAL ROUTE TWO (2) TIMES PER DAY IN THE MORNING AND EVENING FOR TWO (2) WEEKS 01/28 completed Not Available Not Available Not Available gabapenti n 300 mg capsule Take 1 capsule every day by oral route for 30 days. 2024 active Not Available Not Available Not Avai lable sertralin e 25 mg tablet Take 1 tablet every day by oral route. 10/02 completed increase d to 100mg Not Available Not Available Not Available lisinopri l 20 mg-hydroc hlorothia zide 25 mg tablet 02/24 completed Not Available Not Available Not Available diclofena c sodium 75 mg tablet,de layed release Take 1 tablet twice a day by oral route with meals for 30 days. 07/18 completed Not Available Not Available Not Available SB Low Dose ASA EC 81 mg tablet,de layed release Take 1 tablet every day by oral route as directed for 30 days. 03/08 completed Not Available Not Available Not Available allopurin ol 300 mg tablet 02/24 completed Not Available Not Available Not Available lisinopri l 5 mg tablet (5 mg) active Not Available Not Available Not Available furosemid e 20 mg tablet TAKE 1 TABLET EVERY other DAY 11/11 completed Not Available Not Available Not Available gabapenti n 100 mg capsule Take 1 capsule twice a day by oral route for 30 days, for neuropat hy. 08/05 completed Not Available Not Available Not Available metoprolo l succinate ER 25 mg tablet,ex tended release 24 hr (25 mg) 12/10 completed Not Available Not Available Not Available ergocalci ferol (vitamin D2) 1,250 mcg (50,000 unit) capsule TAKE 1 CAPSULE BY MOUTH ONCE WEEKLY 2024 active Not Available Not Available Not Avai lable testoster one cypionate 200 mg/mL intramusc ular oil inject 1 ml every 2 weeks by im as directed for 90 days 12/08 completed Not Available Not Available Not Available Anusol-HC 25 mg rectal supposito ry Insert 1 supposit ory twice a day by rectal route for 14 days. 10/02 completed Not Available Not Available Not Available zolpidem 10 mg tablet Take 1 tablet every day by oral route as needed for 30 days. 01/28 completed Not Available Not Available Not Available methylpre dnisolone 4 mg tablets in a dose pack 02/13 completed Not Available Not Available Not Available ketorolac 60 mg/2 mL intramusc ular solution Inject 2 mL by intramus cular route. 03/20 completed Not Available Not Available Not Available BD Luer-Evette Syringe 3 mL 22 gauge x 1 12/08 completed Not Available Not Available Not Available ketoconaz ole 2 % topical cream APPLY TO THE AFFECTED AREA(S) BY TOPICAL ROUTE ONCE DAILY 03/08 completed Not Available Not Available Not Available oxybutyni n chloride 5 mg tablet TAKE 1 TABLET AT BEDTIME 07/15 completed Not Available Not Available Not Available fluticaso ne propionat e 50 mcg/actua tion nasal spray,michael pension [place] 1 spray every day by intranas al route for 30 days. 10/02 completed Not Available Not Available Not Available sertralin e 50 mg tablet TAKE 1 TABLET BY MOUTH EVERY DAY 07/16 completed Not Available Not Available Not Available terazosin 10 mg capsule (10 mg) active Not Available Not Available Not Available amoxicill in 875 mg-potass ium clavulana te 125 mg tablet 02/13 completed Not Available Not Available Not Available Ventolin HFA 90 mcg/actua tion aerosol inhaler (90 mcg/actu at) active Not Available Not Available No t Available neomycin- polymyxin -hydrocor t 3.5 mg-10,000 unit/mL-1 % ear drops,michael p (3.5-10, 000-1 mg/mL-un it) active Not Available Not Available No t Available cyclobenz aprine 5 mg tablet (5 mg) 12/10 completed Not Available Not Available Not Available bupropion HCl XL 150 mg 24 hr tablet, extended release Take 1 tablet every day by oral route for 30 days. 11/04 completed Not Available Not Available Not Available fenofibra te 160 mg tablet TAKE ONE (1) TABLET BY MOUTH EVERY DAY 11/11 completed Not Available Not Available Not Available pregabali n 25 mg capsule TAKE 1 CAPSULE AT BEDTIME FOR ONE (1) WEEK THEN INCREASE TO ONE (1) CAPSULE TWICE DAILY FOR ONE (1) WEEK THEN INCREASE TO ONE (1) CAPSULES THREE (3) TIMES DAILY THEREAFT ER 03/08 completed Not Available Not Available Not Available vitamin E 1 PO daily 07/15 completed Not Available Not Available Not Available multivita min 1 PO daily active Not Available Not Available No t Available levocetir izine 5 mg tablet (5 mg) active Not Available Not Available No t Available fenofibri c acid (choline) 135 mg capsule,d elayed release 02/24 completed Not Available Not Available Not Available Tradjenta 5 mg tablet (5 mg) active Not Available Not Available Not Available Chantix Continuin g Month Box 1 mg tablet Take 1 tablet twice a day by oral route for 30 days. 11/04 completed Not Available Not Available Not Available Chantix Starting Month Box 0.5 mg (11)-1 mg (42) tablets in dose pack Take 1 startr pk by oral route as directed . 11/04 completed Not Available Not Available Not Available TRUEplus Lancets 33 gauge active Not Available Not Available Not Available True Metrix Glucose Test Strip Take 1 strip every day by miscell. route. active Not Available Not Available No t Available Ozempic 0.25 mg or 0.5 mg (2 mg/1.5 mL) subcutane ous pen injector Inject 0.5 mg every week by subcutan eous route. 04/26 completed Not Available Not Available Not Available Flublok Quad (PF) 180 mcg (45 mcg x 4)/0.5 mL IM syringe PHARMACI ST ADMINIST ERED IMMUNIZA TION ADMINIST ERED AT TIME OF DISPENSI NG 05/18 completed Not Available Not Available Not Available Ozempic 1 mg/dose (4 mg/3 mL) subcutane ous pen injector INJECT ONE (1) MG EVERY WEEK BY SUBCUTAN EOUS ROUTE. 04/26 completed Not Available Not Available Not Available True Metrix Glucose Meter kit active Not Available Not Available No t Available Mounjaro 2.5 mg/0.5 mL subcutane ous pen injector Inject 2.5 mg every week by subcutan eous route. 04/26 completed Not Available Not Available Not Available FreeStyle Antonina 3 Sensor device USE DIRECTED CHANGE DEVICE EVERY 14 DAYS 11/11 completed Not Available Not Available Not Available Ozempic 0.25 mg or 0.5 mg (2 mg/3 mL) subcutane ous pen injector INJECT 0.5 MG EVERY WEEK BY SUBCUTAN EOUS ROUTE. 04/26 completed Not Available Not Available Not Available budesonid e-formote rol HFA 160 mcg-4.8 mcg/actua tion aerosol inhaler Inhale by inhalati on route. active Not Available Not Available No t Available Vitals Date Recorded Body height Heart rate Oxygen saturation Oxygen saturation in Arterial blood by Pulse oximetry Respiratory rate Body mass index (BMI) Body weight Systolic blood pressure Diastolic blood pressure Provider Name and Address Organization Details Last Updated DateTime 5 182.88 cm 63 /min 95 % 95 % 18 /min 38.7 kg/m2 695217. 83 g 142 mm[Hg] 80 mm[Hg] Litzy Underwood [place] - [facility] 09:03:49 Social History Question Answer Notes LastModified by Organizat ion Details LastModified Time Tobacco Smoking Status Former Smoker stopped in 2019 Sanam ivan [place] - [facility] 04/01/2024 09:29:25 Able To Swim? Yes [email or web address] Informati on not available 02/24/2017 Do You Have An Advance Directive? Yes [email or web address] Information not available 12/10/2024 How Many Years Have You Consumed Alcohol? 45 Information not available 12/10/2024 Are You Blind Or Do You Have Difficulty Seeing? No [email or web address] Information not available 02/24/2017 Is Blood Transfusion Acceptable In An Emergency? Yes Information not available 12/10/2024 What Is Your Level Of Caffeine Consumption? Occasional Information not available 12/10/2024 In The 14 Days Before Symptom Onset, Have You Had Close Contact With A Laboratory-confi rmed COVID-19 While That Case Was Ill? No Information not available 07/15/2022 In The 14 Days Before Symptom Onset, Have You Had Close Contact With A Person Who Is Under Investigation For COVID-19 While That Person Was Ill? No Information not available 07/15/2022 Have You Been To An Area Known To Be High Risk For COVID-19? No Information not available 07/15/2022 Are You Deaf Or Do You Have Serious Difficulty Hearing? Yes Left Ear [email or web address] Information not available 09/24/2021 What Type Of Diet Are You Following? REGULAR [email or web address] Information not available 02/24/2017 Which Illicit Or Recreational Drugs Have You Used? [place] Information not available 12/10/2024 Have You Processed Blood Or Body Fluids From An Ebola Virus Disease Patient Without Appropriate PPE? No Information not available 07/15/2022 Do You Reside In Or Have You Traveled To An Area Where Ebola Virus Transmission Is Active? No Information not available 07/15/2022 What Is The Highest Grade Or Level Of School You Have Completed Or The Highest Degree You Have Received? [id number] Information not available 07/15/2022 Swimming/diving Yes [email or web address] Informa tion not available 02/24/2017 Have There Been Any Changes To Your Family Or Social Situation? No Information not available 07/15/2022 What Is The Fluoride Status Of Your Home? Fluoridated Information not available 07/15/2022 When Did You Quit Smoking? 1-5yearssincel [email or web address] Information not available 07/15/2022 Hard Of Hearing Or Deaf In One Or Both Ears? No [email or web address] Information not available 02/24/2017 Have You Recently Or Are You Planning To Travel To An Area With Zika Virus? No Information not available 07/15/2022 How Many Years Have You Used Illicit Or Recreational Drugs? 45 Information not available 12/10/2024 Legally Blind In One Or Both Eyes? No [email or web address] Information not available 02/24/2017 Live Alone Or With Others? With Others [email or web address] Information not available 02/24/2017 Do You Have A Medical Power Of Sales And Distribution Clerk? No Information not available 07/15/2022 What Was The Date Of Your Most Recent Tobacco Screening? 08/05/2024 Information not available 08/05/2024 How Many Children Do You Have? 1 [email or web address] Information not available 02/24/2017 What Is Your Current Pack Years? [email or web address] Information not available 10/13/2022 What Is Your Relationship Status? [email or web address] Information not available 02/24/2017 Do You Use Your Seat Belt Or Car Seat Routinely? Yes Information not available 12/10/2024 Seat Belts Used Routinely Yes [email or web address] Information not available 02/24/2017 Are You Sexually Active? No Information not available 12/10/2024 Smoke Alarm In Home Yes [email or web address] Information not available 02/24/2017 Do You Have Smoke And Carbon Monoxide Detectors In Your Home? Yes Information not available 07/15/2022 At What Age Did You Start Smoking Tobacco? 15 Information not available 10/13/2022 Are You Passively Exposed To Smoke? No Information not available 07/15/2022 How Much Tobacco Do You Smoke? 1.5 PPD [email or web address] Information not available 02/24/2017 Do You Use Sunscreen Routinely? No [email or web address] Information not available 02/24/2017 Has Tobacco Cessation Counseling Been Provided? No Information not available 10/03/2023 On What Date Was Tobacco Cessation Counseling Provided? 08/27/2021 [email or web address] Information not available 08/27/2021 How Many Years Have You Smoked Tobacco? 50 Stopped 4 Years In 2023 Information not available 04/01/2024 Do You Have Difficulty Walking Or Climbing Stairs? Yes [email or web address] Information not available 09/24/2021 Sex: Male Functional Status Question Answer Note LastModified by Organizat ion Details LastModified Time Do you or have you ever used smokeless tobacco? Never used smokeless tobacco Information not available 12/10/2024 Are you currently employed? No Information not available 12/10/2024 Do you have transportation difficulties? No Information not available 07/15/2022 Are you able to care for yourself? Yes [email or web address] Information n ot available 02/24/2017 Do you have difficulty dressing or bathing? No [email or web address] Information not available 02/24/2017 Do you or have you ever used e-cigarettes or vape? Never used electronic cigarettes Information not available 12/10/2024 What is your exercise level? None Information not available 12/10/2024 Do you use any illicit or recreational drugs? Yes Information not available 12/10/2024 Do you or have you ever used any other forms of tobacco or nicotine? No Information not available 10/13/2022 What is your level of alcohol consumption? Occasional Information not available 12/10/2024 Are you able to walk? YESWOREST [email or web address] Information not available 02/24/2017 Do you have difficulty doing errands alone? No [email or web address] Information not available 02/24/2017 What is your occupation? retired [email or web address] Information not available 09/24/2021 Mental Status Question Answer Note LastModified by Organizat [employer] Details LastModified Time Do you feel stressed (tense, restless, nervous, or anxious, or unable to sleep at night)? [id number] Information not available 07/15/2022 Do you have difficulty concentrating, remembering or making decisions? No [email or web address] Information no t available 02/24/2017 Family History Relationship Description Onset Age of this Age Resolved Age Notes LastModified by Organization Details LastModified Time Father No current problems or disability [email or web address] Not available 12/10 08:15:12 Father Malignant neoplastic disease 54 56 [email or web address] Not available 2024 08:15:12 Father Malignant neoplasm of lung 54 56 [email or web address] Not available 2024 08:15:12 Mother No current problems or disability [email or web address] Not available 12/10 08:15:12 Mother Anxiety disorder 22 82 [email or web address] Not available 2024 08:15:12 Mother Heart disease 78 82 [email or web address] Not available 2024 08:15:12 Mother Diabetes mellitus 45 82 [email or web address] Not available 2024 08:15:12 Medical History Condition Response Kidney Stones Y Erectile Dysfunction Y Hospital Admission Other Than Y Anxiety Disorder Y Muscle, Joint, or Bone Problems Y Obesity Y Arthritis Y Head Injury/Concussion Y Hypercholesterolemia Y Ear or Hearing Problems Y Hospitalizations Y Skin Problems Y Diabetes Y Degenerative Disc Disease Y Sleep Apnea Y Neuropathy Y Hypertension Y Immunizations Vaccine Type Date Status Note Provider Name and Address Organization Details Recorded Time Influenza, high-dose, trivalent, PF 024 completed Not Available [facility] 12/10/2024 07:59:34 COVID-19, mRNA, LNP-S, PF, 50 mcg/0.5 mL 024 completed Not Available [facility] 12/10/2024 07:59:34 zoster, unspecified formulation 017 completed Not Available [facility] 06/19/2023 09:01:39 pneumococcal, unspecified formulation 016 completed Not Available [facility] 06/19/2023 09:01:39 zoster recombinant 025 cancelled patient objection Donnie Bradshaw, [employer] [address], [place], [address], [place] - [facility] 10/08/2024 10:12:38 Influenza, split virus, quadrivalent, preservative 020 completed Not Available [facility] 06/19/2023 09:01:39 COVID-19, mRNA, LNP-S, PF, 30 mcg/0.3 mL dose 021 completed Litzy ivan, [place] - [facility] 08/19/2022 10:31:53 COVID-19, mRNA, LNP-S, PF, 30 mcg/0.3 mL dose 021 completed Litzy Underwood null, [place] - [facility] 08/19/2022 10:31:53 COVID-19, mRNA, LNP-S, PF, 30 mcg/0.3 mL dose 022 completed Not Available [facility] 06/19/2023 09:01:39 COVID-19 vaccine, vector-nr, [id number], PF, 0.5 mL 021 completed Litzy Dwyerler null, [facility]20[facility] 10:31:53 Influenza, split virus, quadrivalent, preservative 018 completed Litzy Kj null, [facility]/2022 10:31:53 Influenza, split virus, quadrivalent, preservative 018 completed Litzy Kj null, - [facility]/2022 10:31:53 Influenza, split virus, quadrivalent, preservative 019 completed Litzy Dwyerler null, [facility]/2022 10:31:53 Influenza, recombinant, quadrivalent, PF 020 completed Litzy Kj null, [facility]/2022 10:31:53 Influenza, high-dose, quadrivalent, PF completed Litzy Kj null, [facility]/2022 10:31:53 Influenza, high-dose, quadrivalent, PF 022 completed Litzy Kj null, [facility]/2022 10:31:53 Pneumococcal conjugate PCV20, polysaccharide [id number] conjugate, adjuvant, PF [facility], [facility] 10:31:53 COVID-19, mRNA, LNP-S, PF, 30 mcg/0.3 mL dose, ramu-sucrose completed Litzy Kj null, - [facility]/2022 10:31:53 COVID-19, mRNA, LNP-S, bivalent, PF, 30 mcg/0.3 mL dose completed Litzy Kj null, [facility]/2022 10:31:53 pneumococcal polysaccharide PPV23 019 completed [facility], [facility] 08/19/2022 10:31:53 Tdap completed [facility]j [facility], [facility] 08/[facility]/20[facility] 10:31:54 Pneumococcal conjugate PCV 13 021 completed Litzy ivan, [place] - [facility] 08/19/2022 10:31:54 Influenza, high-dose, quadrivalent, PF 023 completed Litzy Underwood null, [place] - [facility] 06/13/2023 14:30:56 RSV, recombinant, protein subunit RSVpreF, adjuvant reconstituted, 0.5 mL, PF 023 completed Litzy Underwood null, [place] - [facility] 06/13/2023 14:30:56 COVID-19, mRNA, LNP-S, PF, 50 mcg/0.5 mL 023 completed Litzy Underwood null, [place] - [facility] 06/13/2023 14:30:56 Past Encounters Encounter ID Performer Location Encounter Start Date Encounter Closed Date Diagnosis/Indication Diagnosis SNOMED-CT Code Diagnosis ICD10 Code Diagnosis Note [id number] Donnie Bradshaw APRN [address] [address] 11/11/2024 08:37:18 11/11/2024 09:30:44 Neuropathy 290365675 G62.9 Pt compliant with plan of careTenzin reviewedme dication compliance discussedC ontrol substance agreement on file Body mass index 30+ - obesity 202479854 Z68.38 BMI 38.7 Abdominal aortic aneurysm 912421623 I71.40 follow up with cardothora sic surgery Coronary arteriosclerosis 41068492 I25.10 follow up with cardiology Chronic ki dney disease stage 3B [id number] N18.32 follow up with nephrology Health Concerns Section Related Observation LastModified by Organization Detai ls LastModified Time None Recorded Concern Status LastModified by Organization Details LastModified Time None Recorded Payers Encounter Date Sequence Insurance Name Policy Number Policy Stevenson Covered Member ID Stevenson Member ID Guarantor Name 11/11/2024 1 BCBS[place]: [place] (MEDICARE REPLACEMENT HMO) [id number] Anjum Draper [id number] Anjum Draper Notes Date Note Type Note Provider Name and Address Organization Details Recorded Time 11/11/2024 text/html 69 yr old male presents for discuss medications and refill gabapentin. pt states he wants to wean off gabapentin. pt states he see nephrology the 25 of november. pt states his surgery for AAA is put on hold for now due to him needing cardiac stents. Donnie Bradshaw, [employer] [address], [place], [address], [place] [facility] 11/11/2024 09:34:21
--- OUTSIDE RECORDS SUMMARY | 2024-12-15 20:52 | XMS_ITS | Clinical Summary ---
Author Organization [facility] Address [address] [place] [address] Care Team Providers Care Automotive Diagnostic Technician Name Role Phone None, None Primary Care Provider Unavailabl e Allergies No known active allergies Medications atorvastatin (LIPITOR) 20 MG tablet 04/05/2023 Active choline fenofibrate (TRILIPIX) 135 MG CPDR delayed release capsule Take by mouth Active terazosin (HYTRIN) 10 MG capsule 03/15/2019 Active sertraline (ZOLOFT) 50 MG tablet TAKE ONE (1) TABLET EVERY DAY BY ORAL ROUTE FOR 30 DAYS. 02/19/2021 Active famotidine (PEPCID) 40 MG tablet TAKE ONE (1) TABLET BY MOUTH EVERY DAY 12/29/2020 Active lisinopril (PRINIVIL;ZESTRI L) 5 MG tablet 04/23/2023 Acti ve metoprolol succinate (TOPROL XL) 25 MG extended release tablet TAKE ONE (1) TABLET BY MOUTH EVERY DAY 12/29/2020 Active linaGLIPtin (TRADJENTA PO) Take by mouth Active SILDENAFIL CITRATE PO Take by mouth Active Active Problems No known active problems Social History Tobacco Use Types Packs/Day Years Used Date Smoking Tobacco: Former Cigarettes Q uit: 08/07/2018 Smokeless Tobacco: Never Tobacco Cessation:Counseling Given: Not Answered Sex and Gender Information Value Date Recorded Sex Assigned at Not on file Legal Sex Male 7:01 PM EST Gender Identity Not on file Sexual Orientation Not on file Last Filed Vital Signs Vital Sign Reading Time Taken Comments Blood Pressure 138/81 07/11/2023 12:58 PM EST Pulse 87 07/11/2023 12:58 PM EST Temperature - - Respiratory Rate 16 07/11/2023 12:58 PM EST Oxygen Saturation - - Inhaled Oxygen Concentration - - Weight 120.7 kg (266 lb) 07/11/2023 12:58 PM EST Height 182.9 cm (6') 07/11/2023 12:58 PM EST Body Mass Index 36.08 07/11/2023 12:58 PM EST Plan of Treatment Health Maintenance Due Date Last Done Comments Lipids 1965 Depression Screen 1967 Hepatitis C screen 1973 Colonoscopy 2000 FIT/FOBT: Average risk 2000 Sigmoidoscopy/CT colonography 2000 Shingles vaccine (1 of 2) 2005 AAA screen 2020 COVID-19 Vaccine ( season) 2024 04/27/2023, 03/26/2022, 11/10/2021, Additional history exists Annual Wellness Visit (Medicare Advantage) 07/10/2024 Flu vaccine (Season Ended) 02/07/202504/27, 04/21/2022, 04/06/2021, Additional history exists Colorectal Cancer Screen 10/04/2025 Fecal-DNA (Cologuard): Average risk 10/04/2025 10/04/2022, 09/18/2019 DTaP/Tdap/Td vaccine (2 - Td or Tdap) 04/26/2028 04/26/2018 Pneumococcal 50+ years Vaccine Completed 04/21/2022, 07/08/2021, 04/29/2019 Respiratory Syncytial Virus (RSV) or age 60 yrs+ Completed 04/27/2023 Hepatitis A vaccine Aged Out No longe r eligible based on patient's age to complete this topic Hepatitis B vaccine Aged Out No longe r eligible based on patient's age to complete this topic Hib vaccine Aged Out No longer eligi ble based on patient's age to complete this topic Meningococcal (ACWY) vaccine Aged Out No longer eligible based on patient's age to complete this topic Meningococcal B vaccine Aged Out No l onger eligible based on patient's age to complete this topic Polio vaccine Aged Out No longer elig ible based on patient's age to complete this topic Insurance MEDICARE Care Teams Automotive Diagnostic Technician Relationship Specialty Start Date End Date None, None PCP - General 07/11/23
--- OUTSIDE RECORDS SUMMARY | 2024-12-15 20:53 | XMS_ITS | Clinical Summary ---
Author Organization [facility] Address [address] [place] [id number] Care Team Providers Care Software Test Manager Name Role Phone Unavailable Primary Care Provider Unavailabl e Source Comments This information has been disclosed to you from confidential records protectedfrom disclosure by state law. You shall make no further disclosure of thisinformation without the specific, written, and informed release of theindividual to whom it pertains, or as otherwise permitted by law. A generalauthorization for the release of medical or other information is not sufficientfor the purposes of therelease of HIV test results or diagnoses. [id number] Social History Tobacco Use Types Packs/Day Years Used Date Smoking Tobacco: Never Assessed Sex and Gender Information Value Date Recorded Sex Assigned at Not on file Legal Sex Male 11:52 AM EST Gender Identity Not on file Sexual Orientation Not on file Plan of Treatment Not on file Insurance [employer] PPO MEDICARE
--- OUTSIDE RECORDS SUMMARY | 2024-12-15 20:53 | XMS_ITS | Continuity of Care Document ---
Author Organization 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 Role Phone Khadar Rai MD Unavailable Unavailable Encounters Date Type Department Care Team Description 12/12/2024 10:35 AM EDT Ancillary Procedure [address] [id number] [place] [address] Lucien Vazquez MD DDD (degenerative disc disease), cervical; Cervical pain 12/12/2024 11:15 [place] [address] Lucien Vazquez MD DDD (degenerative disc disease), cervical (Primary Dx); Cervical pain; Cervical radiculopathy; Foraminal stenosis of cervical region; Cervical stenosis of spinal canal; Neck pain; Cervical spondylosis 09/26/2024 Telephone [facility] Neurology [facility] [address] [place] [phone] Adam Moralez MD No Show 06/19/2024 Orders Only [facility] Neurology [facility] [address] [place] [address] Adam Moralez MD History of MRI of brain and brain stem (Primary Dx) 06/19/2024 Telephone [facility] Neurology [facility] [address] [place] [phone] Adam Moralez MD Orders (MRI ) 06/19/2024 12:00 PM EST Office Visit [facility] [address] [facility] [address] [place] [phone] Adam Moralez MD Mild cognitive impairment (Primary Dx); Abnormal movements; Myelopathy (HCC) 05/12/2023 3:50 PM EDT Ancillary Procedure SEP Outside Study Review [address] [facility] [place] [address] Adam Moralez MD History of MRI of brain and brain stem 04/13/2022 Refill [facility] [address] [place] [address] Randolph Marshall MD Medication Refill 11/04/2021 Travel 11/04/2021 3:30 PM EDT Telemedicine [facility] [address] [place] [address] Flakita Crowder APRN Lumbar spondylosis (Primary Dx); Chronic pain syndrome; Chronic bilateral low back pain with bilateral sciatica; Degenerative disc disease, lumbar; DDD (degenerative disc disease), cervical; Cervical radiculopathy; Encounter for long-term (current) use of high-risk medication 10/28/2021 Travel 10/28/2021 12:41 PM EDT - 10/28/2021 11:59 PM EDT Hospital Encounter [facility] [address] [place] [address] Randolph Marshall MD Spondylosis of lumbosacral region without myelopathy or radiculopathy Discharge Disposition: Home or Self Care 10/11/2021 10:30 AM EDT Office Visit [facility] [address] [place] [address] Randolph Marshall MD Spondylosis of lumbosacral region without myelopathy or radiculopathy (Primary Dx); DDD (degenerative disc disease), cervical; Lumbar spondylosis 09/14/2021 Refill [facility] [address] [place] [address] Randolph Marshall MD Medication Refill (Lyrica) 07/12/2021 Travel 07/12/2021 10:30 AM EST Office Visit [facility] [address] [place] [address] Randolph Marshall MD Lumbar spondylosis (Primary Dx); DDD (degenerative disc disease), cervical 05/17/[address] [address] Randolph Marshall MD Results (XR) 05/13/2021 4:15 PM EDT - 05/13/2021 11:59 PM EDT Hospital Encounter [facility] [address] [place] [address] Randolph Marshall MD Lumbar spine pain Discharge Disposition: Home or Self Care 05/13/2021 Travel 05/13/2021 3:15 PM EDT - 05/13/2021 4:14 PM EDT Hospital Encounter [facility] [address] [place] [address] Randolph Marshall MD DDD (degenerative disc disease), cervical Discharge Disposition: Home or Self Care 05/11/[address] [phone] Randolph Marshall MD Referral (Physical therapy and xray) 05/10/2021 Travel 05/10/2021 10:15 AM EDT Office Visit [facility] [address] [place] [address] aRndolph Marshall MD Lumbar spine pain (Primary Dx); DDD (degenerative disc disease), cervical 04/08/2021 Travel 04/08/2021 12:38 PM EDT - 04/08/2021 11:59 PM EDT Hospital Encounter [facility] [address] [place] [address] Randolph Marshall MD DDD (degenerative disc disease), cervical Discharge Disposition: Home or Self Care 03/22/2021 Travel 03/22/2021 1:20 PM EDT Office Visit [facility] [address] [place] [address] Randolph Marshall MD DDD (degenerative disc disease), cervical (Primary Dx) 05/07/2019 1:30 PM EDT Office Visit [facility] Rheumatology [facility] [address] [facility] [address] [place] [address] Bird Jensen MD Positive RHIANNON (antinuclear antibody) (Primary Dx); Hyperlipidemia, unspecified hyperlipidemia type Allergies No known active allergies Medications terazosin (HYTRIN) 10 mg Oral Capsule 03/15/2019 Active famotidine (PEPCID) 40 mg Oral Tablet TAKE ONE (1) TABLET BY MOUTH EVERY DAY 12/29/2020 Active metoprolol succinate (TOPROL-XL) 25 mg Oral Tablet Sustained Release 24 hr TAKE ONE (1) TABLET BY MOUTH EVERY DAY 12/29/2020 Active fenofibrate (LOFIBRA) 160 mg Oral Tablet TAKE ONE (1) TABLET BY MOUTH EVERY DAY 12/29/2020 Active atorvastatin (LIPITOR) 40 mg Oral Tablet Take 40 mg by mouth daily. Active VENTOLIN HFA 90 mcg/actuation Inhl HFA Aerosol Inhaler Inhale 2 Puffs into the lungs every 4 hours as needed for Wheezing. Active lisinopriL (PRINIVIL;ZESTR IL) 5 mg Oral Tablet Take 5 mg by mouth daily. Active TRADJENTA 5 mg Oral Tablet Take 5 mg by mouth daily. 04/18/2024 Active levocetirizine (XYZAL) 5 mg Oral Tablet Take 5 mg by mouth every evening. 04/29/2024 Active cyclobenzaprine (FLEXERIL) 5 mg Oral Tablet Take 5 mg by mouth as needed for Muscle spasms. 05/24/2024 Active sertraline (ZOLOFT) 100 mg Oral Tablet Take 100 mg by mouth daily. Active gabapentin (NEURONTIN) 100 mg Oral Capsule Take 200 mg by mouth 2 times daily. 06/03/2024 Active Fish,Bora,Flax Oils-OM3,6,9 #1 (TRIPLE OMEGA 3-6-9) 400-400-400 mg Oral Capsule Take 1 Capsule by mouth daily. Active MULTIVITAMIN ORAL Take 1 Tablet by mouth daily. Active ergocalciferol (DRISDOL) 1,250 mcg (50,000 unit) Oral Capsule Take 50,000 Units by mouth daily. Active fish oil/flax.oil/e. prim/bcurr (FISH, FLAX ANDBORAGE OIL,PRIM, ORAL) Take 1 Capsule by mouth daily. Active Active Problems Patient Care Coordination No te Formatting of this note migh t be different from the original. [facility] - Randolph Marshall MD Interventional Pain Protocol: Tenzin report completed (EVERY 3 MONTHS) ( 11/01/21 ) Pharmacy: [facility] [place] [address] [facility] [phone] Problem Noted Date Diagnosed Date Mild cognitive impairment 06/19/2024 Hyperlipidemia 05/07/2019 Family History Medical History Relation Name Comments Arthritis Maternal Grandmother Arthritis Mother Relation Name Status Comments Maternal Grandmother Mother Social History Smoking Status as of 12/15/2024 Tobacco Use Types Packs/Day Years Used Date Smoking Tobacco: Never Assessed AUDIT-C Answer Date Recorded Frequency of Alcohol Consumption Never 05/07/2019 Average Number of Drinks Not on file 019 Frequency of Binge Drinking Not on file 04/10 Sex and Gender Information Value Date Recorded Sex Assigned at Not on file Legal Sex Male 4:30 PM EDT Gender Identity Not on file Sexual Orientation Not on file Last Filed Vital Signs Vital Sign Reading Time Taken Comments Blood Pressure 132/80 06/19/2024 11:41 AM EST Pulse 67 06/19/2024 11:41 AM EST Temperature 36.9 C (98.4 F) 06/19/2024 11:41 AM EST Respiratory Rate 16 05/07/2019 1:23 PM EDT Oxygen Saturation 95% 06/19/2024 11:41 AM EST Inhaled Oxygen Concentration - - Weight 131.5 kg (290 lb) 12/12/2024 10:38 AM EDT Height 182.9 cm (6') 12/12/2024 10:38 AM EDT Body Mass Index 39.33 12/12/2024 10:38 AM EDT Plan of Treatment Upcoming Encounters Date Type Department Care Team (Late st Contact Info) Description 01/27/2025 11:15 AM EDT Office Visit [facility] [address] [place] [address] Hamzah Santana MD [address] [place] [address] Procedures Procedure Name Priority Date/Time Associated Diagnosis Comments XR CERVICAL SPINE AP LATERAL FLEXION EXTENSION Routine 12/12/2024 11:44 AM EDT DDD (degenerative disc disease), cervical Cervical pain MRI OUTSIDE STUDY REVIEW Routine 06/19/2024 3:49 PM EST History of MRI of brain and brain stem IR 2 LEVEL RIGHT MEDIAL BRANCH BLOCK LUM SAC Routine 10/28/2021 1:38 PM EDT Spondylosis of lumbosacral region without myelopathy or radiculopathy XR LUMBAR SPINE AP AND LATERAL Routine 05/13/2021 4:38 PM EDT Lumbar spine pain IR CERVICAL/THORACIC KATLYN WITH GUIDANCE Routine 05/13/2021 4:05 PM EDT DDD (degenerative disc disease), cervical GLUCOSE METER POC Routine 05/13/2021 4:0 0 PM EDT IR CERVICAL/THORACIC KATLYN WITH GUIDANCE Routine 04/08/2021 1:29 PM EDT DDD (degenerative disc disease), cervical GLUCOSE METER POC Routine 04/08/2021 12: 56 PM EDT Results * XR CERVICAL SPINE AP LATERAL FLEXION EXTENSION (12/12/2024 11:44 AM EDT) Narrative GenericuserYassine - 12/12/2024 11:44 AM EDT Please see physician's note from office encounter for x-ray imaging result Lucien Vazquez MD IMG DIAGNOSTIC IMAGING OR DERABLES Final Result * MRI OUTSIDE STUDY REVIEW (06/19/2024 3:49 PM EST) us Adam Moralez MD IMG MRI ORDERABLES Fin al Result * IR 2 LEVEL RIGHT MEDIAL BRANCH BLOCK LUM SAC (10/28/2021 1:38 PM EDT) Anatomical Region Laterality Modality Radio Fluoroscop y Narrative 10/28/2021 5:43 PM EDT [facility] PROCEDURE NOTE Anjum Draper October 28, 2021 SURGEON(S): Randolph Marshall MD PRE-OP DIAGNOSIS: 1. Spondylosis of lumbosacral region without myelopathy or radiculopathy POST-OP DIAGNOSIS: 1. Spondylosis of lumbosacral region without myelopathy or radiculopathy IMAGING: Fluoroscopy PROCEDURE: Flouroscopic guided Right Medial Branch Block of L4/L5 and L5/S1 PROCEDURE IN DETAIL: After obtaining informed consent from the patient, the patient's chart was reviewed. The patient was then brought to the procedure room and placed in the prone position. A formal time out was performed identifying the correct patient, correct procedure, reviewing anticoagulation status, reviewing allergies and verifying the correct sites and side. Using sterile technique, appropriate attire was donned, and the operative area was prepped and draped in the usual sterile fashion. Multiple fluoroscopic views were used to optimize the approach to right L4/L5 and L5/S1 facet joint medial branch nerves. The superior aspect of the transverse process was identified at the junction with the superior articular process. The sacral ala was also identified. The skin was anesthetized with 1% Lidocaine. A 22 gauge 3.5 spinal needle was placed in the skin and advanced under intermittent fluoroscopic guidance in a coaxial fashion to the appropriate levels and site of the medial branches at right L4, L5, and Sacral ala sites. Next, after negative aspiration, 1 mL of 0.5% Bupivicaine was injected at each site with minimal pressure. CSF was negative, Paresthesia was negative and Heme was negative. All needles were then flushed with 1% lidocaine and then removed. Sterile dressings were applied to all the sites and the patient tolerated the procedure well and was taken to the recovery area in stable condition. EBL: approx 0-1cc Images of procedure found under images tab dated: 10/28/2021 DISPOSITION/POST PROC COURSE: The patient was monitored for any adverse hemodynamic, allergic, or neurological symptoms. The patient tolerated the procedure well with no apparent complications. Vital signs remained stable throughout the procedure. The patient was taken to the recovery area where written discharge instructions for the procedure were given. The patient was discharged home. Randolph Marshall MD Interventional Pain Management [facility] Sp[facility] Date: 10/28/2021 us Randolph Marshall MD IMG IR ORDERABLES Final R esult * XR LUMBAR SPINE AP AND LATERAL (05/13/2021 4:38 PM EDT) Anatomical Region Laterality Modality L-spine Radiographic Isa ging 05/13/2021 4:38 PM EDT Impressions 05/13/2021 7:56 PM EDT Degenerative disc and facet disease most significant at L4-5. - Note: Radiology results need to be interpreted within a comprehensive clinical context. If you have questions about the radiology report, please contact the office of the ordering clinician. Narrative 05/13/2021 7:56 PM EDT AP AND LATERAL LUMBAR SPINE, 05/13/2021 4:38 PM CLINICAL HISTORY: M54.50-Low back pain, [id number] COMPARISON: None. PROCEDURE COMMENTS: 3 views lumbar spine per protocol. FINDINGS: There is no fracture deformity. No acute malalignment. Endplates are well-defined and pedicles are intact. Mild disc height space loss at L4-5, as well as L3-4. Moderate facet disease L4-5 and L5-S1. Procedure Note Contreras Bronson MD - 05/13/2021 AP AND LATERAL LUMBAR SPINE, 05/13/2021 4:38 PM CLINICAL HISTORY: M54.50-Low back pain, [id number] COMPARISON: None. PROCEDURE COMMENTS: 3 views lumbar spine per protocol. FINDINGS: There is no fracture deformity. No acute malalignment. Endplatesare well-defined and pedicles are intact. Mild disc height space loss at L4-5, as well as L3-4. Moderate facetdisease L4-5 and L5-S1. IMPRESSION: Degenerative disc and facet disease most significant at L4-5. - Note: Radiology results need to be interpreted within a comprehensiveclinical context. If you have questions about the radiology report, please contactthe office of the ordering clinician. us Randolph Marshall MD IMG DIAGNOSTIC IMAGING OR DERABLES Final Result * IR CERVICAL/THORACIC KATLYN WITH GUIDANCE (05/13/2021 4:05 PM EDT) Only the most recent of2 resultswithin the time period is included. Anatomical Region Laterality Modality Radio Fluoroscop y Narrative 05/13/2021 5:41 PM EDT [facility] PROCEDURE NOTE Anjum Draper May 13, 2021 SURGEON(S): Randolph Marshall MD PRE-OP DIAGNOSIS: 1. DDD (degenerative disc disease), cervical POST-OP DIAGNOSIS: 1. DDD (degenerative disc disease), cervical IMAGING: Fluoroscopy PROCEDURE: Cervical Epidural Steroid Injection Under Fluoroscopic Guidance Level: C6-C7 PROCEDURE NOTE: After reviewing the patient's chart, informed consent was obtained and the patient was brought to the procedure room. The patient was placed in a prone position on fluoroscopy table with their neck flexed and their head in a peng. A formal time out was performed identifying the correct patient, correct procedure, reviewing anticoagulation status, reviewing allergies and verifying the correct sites and side. Next, their neck and upper thoracic back was prepped with antiseptic solution and draped in the usual sterile fashion. The overlying skin was identified under fluoroscopic guidance and infiltrated with 1% Lidocaine for local anesthesia via 25 gauge needle. A Touhy needle size 20-gauge was used under fluoroscopic guidance to access the epidural space using loss of resistance to air technique at C6-C7 interspace. Approximately 2 mL of Isovue 200 contrast was used to confirm needle position and contrast spread. Following negative aspiration, a mixture of 15 mg of Decadron and 2 mL's of preservative free normal saline was injected with minimal pressure. CSF was negative, Paresthesia was negative, Heme was negative. The needle was cleared with preservative free local anesthetic and removed. Skin was cleaned and a sterile dressing was applied. The patient tolerated the procedure well and vital signs were stable and patient was taken to the procedure recovery room without issues. EBL: approx 0-1cc Images of procedure found under images tab dated: 05/13/2021 DISPOSITION/POST PROC COURSE: The patient was monitored for any adverse hemodynamic, allergic, or neurological symptoms. The patient tolerated the procedure well with no apparent complications. Vital signs remained stable throughout the procedure. The patient was taken to the recovery area where written discharge instructions for the procedure were given. The patient was discharged home. @VITALS@ Randolph Marshall MD Interventional Pain Management [facility] Date: 05/13/2021 Randolph Marshall MD IMG IR ORDERABLES Final R esult * GLUCOSE METER POC (05/13/2021 4:00 PM EDT) Only the most recent of2 resultswithin the time period is included. [facility] Signature Glucose Meter POC 73 70 - 100 mg/dL 05/13/2021 4:01 PM EDT [facility] Sample Type Capillary 05/13/2021 4:01 PM EDT [facility] Patient Status Non-Critical Patient 05/13/2021 4:01 PM EDT [facility] Blood BLOOD SPECIMEN / Unknown 05/13/2021 4:00 PM EDT 05/13/2021 4:01 PM EDT Randolph Marshall MD POINT OF CARE TEST ORDERA BLES Final Result [facility] [address] [place] [address] Visit Diagnoses Diagnosis Start Date Positive RHIANNON (antinuclear antibody) Other and unspecified nonspecific immunological findings 05/07/2019 Hyperlipidemia, unspecified hyperlipidemia type 05/07/2019 DDD (degenerative disc disease), cervical Degeneration of cervical intervertebral disc 03/22/2021 DDD (degenerative disc disease), cervical Degeneration of cervical intervertebral disc 04/08/2021 DDD (degenerative disc disease), cervical Degeneration of cervical intervertebral disc 05/10/2021 Lumbar spine pain Lumbago 05/10/2021 DDD (degenerative disc disease), cervical Degeneration of cervical intervertebral disc 05/11/2021 Lumbar spine pain Lumbago 05/11/2021 Lumbar spine pain Lumbago 05/13/2021 DDD (degenerative disc disease), cervical Degeneration of cervical intervertebral disc 05/13/2021 DDD (degenerative disc disease), cervical Degeneration of cervical intervertebral disc 07/12/2021 Lumbar spondylosis Lumbosacral spondylosis without myelopathy 07/12/2021 DDD (degenerative disc disease), cervical Degeneration of cervical intervertebral disc 09/14/2021 Lumbar spondylosis Lumbosacral spondylosis without myelopathy 09/14/2021 DDD (degenerative disc disease), cervical Degeneration of cervical intervertebral disc 10/11/2021 Lumbar spondylosis Lumbosacral spondylosis without myelopathy 10/11/2021 Spondylosis of lumbosacral region without myelopathy or radiculopathy Lumbosacral spondylosis without myelopathy 10/11/2021 Spondylosis of lumbosacral region without myelopathy or radiculopathy Lumbosacral spondylosis without myelopathy 10/28/2021 Lumbar spondylosis Lumbosacral spondylosis without myelopathy 11/04/2021 Chronic pain syndrome 11/04/2021 Chronic bilateral low back pain with bilateral sciatica 11/04/2021 Degenerative disc disease, lumbar Degeneration of lumbar or lumbosacral intervertebral disc 11/04/2021 DDD (degenerative disc disease), cervical Degeneration of cervical intervertebral disc 11/04/2021 Cervical radiculopathy Brachial neuritis or radiculitis nos 11/04/2021 Encounter for long-term (current) use of high-risk medication Encounter for long-term (current) use of other medications 11/04/2021 DDD (degenerative disc disease), cervical Degeneration of cervical intervertebral disc 04/13/2022 Lumbar spondylosis Lumbosacral spondylosis without myelopathy 04/13/2022 History of MRI of brain and brain stem Other specified personal history presenting hazards to health 05/12/2023 History of MRI of brain and brain stem Other specified personal history presenting hazards to health 06/19/2024 Mild cognitive impairment Mild cognitive impairment, so stated 06/19/2024 Abnormal movements 06/19/2024 Myelopathy (HCC) Unspecified disease of spinal cord 06/19/2024 DDD (degenerative disc disease), cervical Degeneration of cervical intervertebral disc 12/12/2024 Cervical pain Cervicalgia 12/12/2024 DDD (degenerative disc disease), cervical Degeneration of cervical intervertebral disc 12/12/2024 Cervical pain Cervicalgia 12/12/2024 Cervical radiculopathy Brachial neuritis or radiculitis nos 12/12/2024 Foraminal stenosis of cervical region Spinal stenosis in cervical region 12/12/2024 Cervical stenosis of spinal canal Spinal stenosis in cervical region 12/12/2024 Neck pain Cervicalgia 12/12/2024 Cervical spondylosis Cervical spondylosis without myelopathy 12/12/2024 Care Teams Towel Cabinet Repairer Relationship Specialty Start Date End Date Khadar Rai MD Internal Medicine-Rheumatology 05/07/19
--- OUTSIDE RECORDS SUMMARY | 2024-12-15 20:53 | XMS_ITS | Continuity of Care Document ---
[facility] Address [address] [place] [address] Care Team Providers Care Programming Development Project Manager Name Role Phone LEONIE SLATER Supply Technician YULIYA VARELA Referring Provider DONNIE MELO Primary Care Provider Assessment No assessment recorded. Plan of Treatment Reminders Order Date Submit Date Provider Last Modified By Organization Details Last Modified Time Details Appointments None recorded. Lab None recorded. Referral None recorded. Procedures None recorded. Surgeries None recorded. Imaging None recorded. Medication Orders doxycycline hyclate 100 mg capsule [address], [address], 5 09:11:25 gabapentin 300 mg capsule [address], [address], 5 09:11:25 Patient TargetsNo targets recorded. Patient InstructionsNo instructions recorded. Reason for Referral None Reported. Results Created Date Observation Date Name Description Value Unit Range Abnormal Flag Note LastModifiedBy Organization Detail LastModifiedTime 11/26/19 25 10/31/2024 NM, myoca rdial perfu jos scan, w/ stres s No observ ation record ed. [facility] [address], [place], [address], 11/25/2024 15:36:59 Result Notes None recorded. Problems Name Problem SNOMED Code Status Onset Date Resolution Date Notes Provider Name and Address Organization Details Recorded Time Diabetes mellitus 07263789 Active 2016 Donnie Melo APRN [address], [place], [address] , [place] [facility] 2 14:45:00 Hyperten sive disorder 80801709 Active 2016 Donnie Melo APRN [address], [place], [address] , [place] [facility] 2 14:45:57 Arthriti s 1210012 Active 2016 Donnie Melo APRN [address], [place], [address] , [place] [facility] 2 14:44:57 Neuropat hy 501224437 Active 2016 Donnie Melo APRN [address], [place], [address] , [place] [facility] 2 14:45:09 Injury of foot 313447674 Completed 201604/29/2019 [facility], [place] - [facility] 9 09:29:52 Benign prostati c hyperpla rozina 514889736 Active 2016 Donnie Melo APRN [address], [place], [address] , [place] [facility] 2 14:44:53 Hypogona dism 41079126 Active 2016 Donnie Melo APRN [address], [place], [address] , [place] [facility] 2 14:46:04 Umbilica l hernia 737643088 Active 2018 Not Available [facility] 0 12:41:54 Mixed hyperlip idemia 066341689 Active 2019 Donnie MeloSHANNON [address], [place], [address] , [place] [facility] 2 14:49:04 Sleep apnea 51675424 Active 2019 Donnie Melo, [employer] [address], [place], [address] , [place] [facility] 2 14:45:58 Irritabi lity and anger 075985569 Completed 202007/08/2021 Mary Ann Murphy null, [place] - [facility] 1 08:58:45 Suspecte d COVID-19 043228333 Completed 03/05/2021 Removal Reason: Problem added by user [email or web address] from the COVID-19 watch flag Crystal Miguelito null, [place] [facility] 16:51:44 SARS-CoV -2 Completed 04/09/2021 Removal Reason: Problem added by user [email or web address] from the COVID-19 watch flag Ludivina Gia null, [place] [facility] 13:47:52 Anxiety 15329695 Active 2021 Florinamadison ashleymercedes, [employer] [address], [place], [address] , [place] [facility] 2 14:44:51 Gastroes ophageal reflux disease without esophagi tis 014109801 Active 2021 Donnie Melo, [employer] [address], [place], [address] , [place] [facility] 2 14:45:03 Chronic thoracic back pain 43260683760 9103 Active 2021 Florinarobsonhelena Hanashleymercedes, [employer] [address], [place], [address] , [place] [facility] 2 14:45:33 Abdomina l aortic aneurysm 518927562 Active 2021 Donnie Melo, [employer] [address], [place], [address] , [place] [facility] 2 15:05:31 Ear pressure sensatio n 202166443 Active 2022 Litzy Lanza, [employer] [address], [place], [address] , [place] [facility] 3 15:12:56 Abdomina l aortic aneurysm without rupture 55626168 Active 2024 Donnie Melo, [employer] [address], [place], [address] , [place] [facility] 09:31:59 Coronary arterios clerosis 89505923 Active 2024 Florinarobsonhelena Leeann, [employer] [address], [place], [address] , [place] [facility] 09:32:27 Chronic kidney disease stage 3B 981061313 Active 2024 Florinamadison Melo, [employer] [address], [place], [address] , [place] [facility] 09:33:39 Congesti ve heart failure 58485530 Active 2024 Sanam ivan [place] - [facility] 11:09:50 Problem Notes None recorded. Procedures Surgical History Date Name Laterality Status Provider Name and Address Organization Details Recorded Time 10/09/19 25 Advance Care Planning completed Sanam Argueta [place] - [facility] 10/08/2024 08:49:21 10/09/19 25 Functional Status Assessed completed Sanam Argueta [place] [facility] 025 08:49:21 02/08/20 24 Bladder Scan completed Danielle Aguayo, [employer] [address], [place], [address], [place] [facility] 02/08/2024 11:05:28 10/03/19 24 Advance Care Planning completed Litzy Underwood [place] [facility] 10/03/2023 08:24:38 10/03/19 24 Functional Status Assessed completed Litzy Underwood [place] [facility] 10/03/2023 08:24:38 02/14/20 23 Cerumen Removal completed Donnie Melo [employer] [address], [place], [address], [place] [facility] 02/13/2023 13:29:03 11/22/19 23 Cerumen Removal completed Litzy Lanza [employer] [address], [place], [address], [place] [facility] 11/23/2022 12:35:56 09/27/19 23 Cerumen Removal completed Eugonda Fryman, [employer] [address], [place], [address], [place] [facility] 09/26/2022 13:09:16 07/20/19 23 Cryosurgery Dermatology completed Marina Arreaga, [employer] [address], [place], [address], [place] [facility] 07/20/2022 17:07:15 07/15/19 23 Advance Care Planning completed Litzy Kj [place] [facility] 07/15/2022 08:14:44 07/15/19 23 [...] 08:34:35 04/29/20 19 Functional Status Assessed completed Crystal Miguelito [place] [facility] 04/29/2019 08:34:35 02/29/20 19 Skin Tag Removal completed Marina Arreaga APRN [address], [place], [address], [place] [facility] 02/28/2019 16:58:27 02/29/20 19 Shave Biopsy, Scalp, Neck, Hands, Feet, Genitalia completed Marina Arreaga APRN [address], [place], [address], [place] [facility] 02/28/2019 16:57:48 colonoscopy completed Sanam Argueta [place] [facility] 10/08/2024 09:33:30 dental surgery completed Litzy Underwood [place] [facility] 12/10/2024 08:15:54 Colonoscopy completed Litzy [place]wood [place] [facility] 12/10/2024 08:15:54 Vasectomy completed Litzy [place]wood [place] [facility] 12/10/2024 08:15:54 Unlisted px foot/toes completed Aimee Morgan [place] [facility] 02/24/2017 09:14:12 Imaging Results None [...] e 50 mcg/actua tion nasal spray,michael [employer] [place] 1 spray every day by intranas al [...] completed Not Available Not Available Not Available [employer] Antonina 3 Sensor device USE DIRECTED CHANGE [...] t Available Vitals Date Recorded Body height Body mass index (BMI) Body weight Respiratory rate Heart rate Oxygen saturation Oxygen saturation in Arterial blood by Pulse oximetry Systolic blood pressure Diastolic blood pressure Provider Name and Address Organization Details Last Updated DateTime 5 182.88 cm 38.6 kg/m2 062031. 33 g 18 /min 67 /min 94 % 94 % 168 mm[Hg] 92 mm[Hg] Litzy Underwood [place] - [facility] 5 08:20:36 Social History Question Answer Notes LastModified by Organizat ion Details LastModified Time Tobacco Smoking Status Former Smoker stopped in 2019 Sanam ivan, [place] - [facility] 04/01/2024 09:29:25 Able To Swim? Yes [email or web address] Informati on not available 02/24/2017 Do You Have An Advance Directive? Yes Information not available 12/10/2024 How Many Years Have You Consumed Alcohol? 45 Information not available 12/10/2024 Are You Blind Or Do You Have Difficulty Seeing? No [email or web address] Information not available 02/24/2017 Is Blood Transfusion [...] Have Serious Difficulty Hearing? Yes Left Ear [email or web address] Information not available 09/24/2021 What Type Of Diet Are You Following? REGULAR [email or web address] Information not available 02/24/2017 Which Illicit Or Recreational Drugs Have You Used? [place] Information not available 12/10/2024 Have You Processed [...] Or The Highest Degree You Have Received? [id number] Information not available 07/15/2022 Swimming/diving Yes [email or web address] Informa tion not available 02/24/2017 Have There Been Any Changes To Your Family Or Social Situation? No Information not available 07/15/2022 What Is The Fluoride Status Of Your Home? Fluoridated Information not available 07/15/2022 When Did You Quit Smoking? 1-5yearssincel [email or web address] Information not available 07/15/2022 Hard Of Hearing Or Deaf In One Or Both Ears? No [email or web address] Information not available 02/24/2017 Have You Recently Or Are You Planning To Travel To An Area With Zika Virus? No Information not available 07/15/2022 How Many Years Have You Used Illicit Or Recreational Drugs? 45 Information not available 12/10/2024 Legally Blind In One Or Both Eyes? No [email or web address] Information not available 02/24/2017 Live Alone Or With Others? With Others [email or web address] Information not available 02/24/2017 Do You Have A Medical Power Of Box Car Checker? No Information not available 07/15/2022 What Was The Date Of Your Most Recent Tobacco Screening? 08/05/2024 Information not available 08/05/2024 How Many Children Do You Have? 1 [email or web address] Information not available 02/24/2017 What Is Your Current Pack Years? [email or web address] ars Information not available 10/13/2022 What Is Your Relationship Status? [email or web address] Information not available 02/24/2017 Do You Use Your Seat Belt Or Car Seat Routinely? Yes Information not available 12/10/2024 Seat Belts Used Routinely Yes [email or web address] Information not available 02/24/2017 Are You Sexually Active? No Information not available 12/10/2024 Smoke Alarm In Home Yes [email or web address] Information not available 02/24/2017 Do You Have Smoke And Carbon Monoxide Detectors In Your Home? Yes Information not available 07/15/2022 At What Age Did You Start Smoking Tobacco? 15 Information not available 10/13/2022 Are You Passively Exposed To Smoke? No Information not available 07/15/2022 How Much Tobacco Do You Smoke? 1.5 PPD [email or web address] Information not available 02/24/2017 Do You Use Sunscreen Routinely? No [email or web address] Information not available 02/24/2017 Has Tobacco Cessation Counseling Been Provided? No Information not available 10/03/2023 On What Date Was Tobacco Cessation Counseling Provided? 08/27/2021 [email or web address] Information not available 08/27/2021 How Many Years Have You Smoked Tobacco? 50 Stopped 4 Years In 2023 Information not available 04/01/2024 Do You Have Difficulty Walking Or Climbing Stairs? Yes [email or web address] Information not available 09/24/2021 Sex: Male Functional Status Question Answer Note LastModified by Organizat ion Details LastModified Time Do you or have you ever used smokeless tobacco? Never used smokeless tobacco Information not available 12/10/2024 Are you currently employed? No Information not available 12/10/2024 Do you have transportation difficulties? No Information not available 07/15/2022 Are you able to care for yourself? Yes [email or web address] Information n ot available 02/24/2017 Do you have difficulty dressing or bathing? No [email or web address] Information not available 02/24/2017 Do you or [...] 12/10/2024 Are you able to walk? YESWOREST [email or web address] Information not available 02/24/2017 Do you have difficulty doing errands alone? No [email or web address] Information not available 02/24/2017 What is your occupation? retired [email or web address] Information not available 09/24/2021 Mental Status Question Answer Note LastModified by Organizat ion Details LastModified Time Do you feel stressed (tense, restless, nervous, or anxious, or unable to sleep at night)? [id number] Information not available 07/15/2022 Do you have difficulty concentrating, remembering or making decisions? No [email or web address] Information no t available 02/24/2017 Family History [...] Medical History Condition Response Kidney Stones Y Ear or Hearing Problems Y Erectile Dysfunction Y Hospitalizations Y Hospital Admission Other Than Y Skin Problems Y Anxiety Disorder Y Diabetes Y Muscle, Joint, or Bone Problems Y Obesity Y Degenerative Disc Disease Y Arthritis Y Head Injury/Concussion Y Hypercholesterolemia Y Sleep Apnea Y Neuropathy Y Hypertension Y Immunizations Vaccine Type Date Status Note Provider Name and Address Organization Details Recorded Time Influenza, high-dose, trivalent, PF 024 completed Not Available [facility] 12/10/2024 07:59:34 COVID-19, mRNA, LNP-S, PF, 50 mcg/0.5 mL 024 completed Not Available [facility] 12/10/2024 07:59:34 zoster, unspecified formulation 017 completed Not Available [facility] 06/19/2023 09:01:39 pneumococcal, unspecified formulation 016 completed Not Available [facility] 06/19/2023 09:01:39 zoster recombinant 025 cancelled patient objection Donnie Melo, [employer] [address], [place], [address], [place] [facility] 10/08/2024 10:12:38 Influenza, split virus, quadrivalent, preservative 020 completed Not Available [facility] 06/19/2023 09:01:39 COVID-19, mRNA, LNP-S, PF, 30 mcg/0.3 mL dose 021 completed Litzy ivan, [place] - [facility] 08/19/2022 10:31:53 COVID-19, mRNA, LNP-S, PF, 30 mcg/0.3 mL dose 021 completed Litzy Kj null, [facility] 08/19/2022 10:31:53 COVID-19, mRNA, LNP-S, PF, 30 mcg/0.3 mL dose 022 completed Not Available [facility] 06/19/2023 09:01:39 COVID-19 vaccine, vector-nr, rS-Ad26, PF, 0.5 mL 021 completed Litzy Kj null, [facility] 08/19/2022 10:31:53 Influenza, split virus, quadrivalent, preservative 018 completed Litzy Kj null, [facility] 08/19/2022 10:31:53 Influenza, split virus, quadrivalent, preservative 018 completed Litzy Kj null, [facility] 08/19/2022 10:31:53 Influenza, split virus, quadrivalent, preservative 019 completed Litzy Kj null, [facility] 08/19/2022 10:31:53 Influenza, recombinant, quadrivalent, PF 020 completed Litzy Kj null, [facility] 08/19/2022 10:31:53 Influenza, high-dose, quadrivalent, PF 021 completed Litzy Kj null, [facility] 08/19/2022 10:31:53 Influenza, high-dose, quadrivalent, PF 022 completed Litzy Kj null, [facility] 08/19/2022 10:31:53 Pneumococcal conjugate PCV20, polysaccharide [id number] conjugate, adjuvant, PF 022 completed Litzy Kj null, [facility] 08/19/2022 10:31:53 COVID-19, mRNA, LNP-S, PF, 30 mcg/0.3 mL dose, ramu-sucrose 022 completed Litzy Kj null, [facility] 08/19/2022 10:31:53 COVID-19, mRNA, LNP-S, bivalent, PF, 30 mcg/0.3 mL dose 022 completed Litzy Kj null, [facility] 08/19/2022 10:31:53 pneumococcal polysaccharide PPV23 019 completed Litzy Underwood null, [place] - [facility] 08/19/2022 10:31:53 Tdap 018 completed Litzy Underwood null, [place] - [facility] 08/19/2022 10:31:54 Pneumococcal conjugate PCV 13 021 completed Litzy Underwood null, [facility] 08/19/2022 10:31:54 Influenza, high-dose, quadrivalent, PF 023 completed Litzy Underwood null, [facility] 06/13/2023 14:30:56 RSV, recombinant, protein subunit RSVpreF, adjuvant reconstituted, 0.5 mL, PF 023 completed Litzy Underwood null, [facility] 06/13/2023 14:30:56 COVID-19, mRNA, LNP-S, PF, 50 mcg/0.5 mL 023 completed Litzy Underwood null, [facility] 06/13/2023 14:30:56 Past Encounters Encounter ID Performer Location Encounter Start Date Encounter Closed Date Diagnosis/Indication Diagnosis SNOMED-CT Code Diagnosis ICD10 Code Diagnosis Note [id number] Donnie Melo [address] [address] 11/11/2024 08:37:18 11/11/2024 09:30:44 Neuropathy 712828600 G62.9 Pt compliant with plan of careKasper reviewedme dication compliance discussedC ontrol substance agreement on file Body mass index 30+ - obesity 439715565 Z68.38 BMI 38.7 Abdominal aortic aneurysm 818364250 I71.40 [facility] Coronary arteriosclerosis 93160871 I25.10 follow up with cardiology Chronic ki dney disease stage 3B 839930683 N18.32 follow up with nephrology [id number] Donnie Melo [address] [address] 12/10/2024 07:59:03 12/10/2024 09:17:43 Neuropathy 629906272 G62.9 Pt compliant with plan of careKasper reviewedme dication compliance discussedC ontrol substance agreement on file Acute bronchitis 0968064 2 J20.9 if worsen or no improvemen t return Chronic th oracic back pain 6798675710 06821 M54.6 follow up with chen [facility] Concerns Section Related Observation LastModified by Organization Detai ls LastModified Time None Recorded Concern Status LastModified by Organization Details LastModified Time None Recorded Payers Encounter Date Sequence Insurance Name Policy Number Policy Stevenson Covered Member ID Stevenson Member ID Guarantor Name 12/10/2024 1 [place]MEDICARE [place]PLACEMENT HMO) [id number] Anjum Draper [id number] Anjum Draper Notes Date Note Type Note Provider Name and Address Organization Details Recorded Time 12/10/2024 text/html 69 yr old male presents for a follow up on neuropathy, he needs gabapentin refill. His also reports some confusion and is concerned- this has been going on a long time, seen neurology and was told he does have deficits. He is argumentative and agitated alot of times since being off gabapentin. 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 coughing up thick cream/yellow sputum and chest congestion.has appointment this week with chen singer. just seen nephrology and had labs Donnie Melo, [employer] [address], [place], [address], [place] [facility] 12/10/2024 09:13:45
--- OUTSIDE RECORDS SUMMARY | 2024-12-15 20:53 | XMS_ITS | Data Portability ---
Author Organization [facility] Address [address] [place] [address] Care Team Providers Care Infertility Nurse Name Role Phone LEONIE SLATER Transportation Specialist YULIYA VARELA Referring Provider DONNIE MELO Primary Care Provider Assessment Encounter Date Assessment Date Assessment LastModified by Organization Details LastModified Time 10/08/2024 10/08/2024 Patient presente d to office today for their Medicare Annual Wellness Visit. Education was provided on healthy nutrition, including a diet rich in fruits and vegetables, minimizing simple carbohydrates, salt, and saturated fats. Encouraged regular cardiovascular exercise such as walking at least 30 minutes daily, 5 times per week. Emphasized preventive health measures and educated pt on fall prevention and community-based lifestyle interventions to help reduce health risks and promote healthy living. Medicare Preventive Services Check List reviewed and printed for patient. [email or web address] Not available 10/08/2024 08:49:20 Plan of Treatment Reminders Order Date Submit Date Provider Last Modified By Organization Details Last Modified Time Details Appointments None recorded. Lab renal function panel, serum 2024 025 GIANNI [facility], [address], [place], [address], 5 09:07:39 BNP (B-type natriureti c peptide), serum or plasma 2024 025 GIANNI [facility], [address], [place], [address], 5 09:07:39 vitamin D, 25-hydroxy , total, serum 2024 025 GIANNI [facility], [address], [address], [place], [address], 5 12:07:53 CMP, serum or plasma 2024 025 GIANNI [facility], [address], [address], [place], [address], 12:07:51 CBC w/ auto diff 2024 025 GIANNI [facility], [address], [address], [place], [address], 12:07:50 lipid panel, serum 2024 025 GIANNI [facility], [address], [address], [place], [address], 12:07:51 HbA1c (hemoglobi n A1c), blood 2024 025 GIANNI [facility], [address], [address], [place], [address], 12:07:52 PSA, serum or plasma 2024 025 GIANNI [facility], [address], [address], [place], [address], 12:07:52 Referral orthopedic spine surgeon referral 2024 025 [facility], [address] [facility], [place], [address], 5 11:53:45 Procedures None recorded. Surgeries None recorded. Imaging None recorded. Medication Orders doxycyclin e hyclate 100 mg capsule 2024 025 [facility], [address] [place] [address], [address], 5 09:11:25 gabapentin 300 mg capsule 2024 025 [facility], [address] [place] [address], [address], 5 09:11:25 gabapentin 300 mg capsule 2024 025 [facility], [address] [place] [address], [address], 5 09:31:20 triamcinol one acetonide 0.1 % topical cream 2024 025 [facility], [address] [place] [address], [address], 5 10:12:39 furosemide 20 mg tablet 2024 025 [facility], [address] [place] [address], [address], 5 09:11:51 triamcinol one acetonide 0.1 % topical cream 2024 025 [facility], [address] [place] [address], [address], 5 15:25:18 lisinopril 5 mg tablet 2024 025 [facility], [address] [place] [address], [address], 5 15:25:15 sertraline 100 mg tablet 2024 025 [facility], [address] [place] [address], [address], 5 15:25:06 levocetiri zine 5 mg tablet 2024 025 [facility], [address] [place] [address], [address], 15:25:09 gabapentin 300 mg capsule 2024 025 [facility], [address] [place] [address], [address], 15:25:21 terazosin 10 mg capsule 2024 025 [facility], [address] [place] [address], [address], 15:25:12 Patient TargetsNo targets recorded. Patient Instructions Encounter Date Encounter Id Patient Instructions Last Modified By Organization Details Last Modified Time 10/08/2024 [id number] advance directives: care instructions efryman Not available 10/08/2024 10:12:38 learning about depression efryman Not available 10/08/2024 10:12:38 preventing falls : care instructions efryman Not available 10/08/2024 10:12:38 medicare preventive services guide efryman Not available 10/08/2024 10:12:38 learning about healthy weight efryman Not available 10/08/2024 10:12:38 body mass index: care instructions efryman Not available 10/08/2024 10:12:38 Reason for Referral Orthopedic Spine Surgeon Ref erral for Neck pain Referring Physician: Donnie Melo, Family Medicine, Encounter Date: 08/05/2024 Results Created Date Observation Date Name Description Value Unit Range Abnormal Flag Note LastModifiedBy Organization Detail LastModifiedTime 09/21/1909/21/2024 RENAL PANEL (10) glucose 105 mg/dL 70-99 above high normal Not Available [facility] ([facility]) [address] [place], [address], 09/21/2024 09:07:39 09/21/1909/21/2024 RENAL PANEL (10) BUN 33 mg/dL 8-27 above high normal Not Available [facility] ([facility]) [address] [place], [address], 09/21/2024 09:07:39 09/21/19 25 09/21/2024 RENAL PANEL (10) creatinine 3.15 mg/dL 0.76-1 .27 above high normal Not Available [facility] ([facility]) [address] [facility] [place], [address], 09/21/2024 09:07:39 09/21/19 25 09/21/2024 RENAL PANEL (10) eGFR 21 mL/mi n/1.7 3 >59 below low normal Not Available [facility] ([facility]) [address] [facility] [place], [address], 09/21/2024 09:07:39 09/21/19 25 09/21/2024 RENAL PANEL (10) BUN/creatini ne ratio 10 10-24 normal Not Available [facility] ([facility]) [address] [facility] [place], [address], 09/21/2024 09:07:39 09/21/19 25 09/21/2024 RENAL PANEL (10) sodium 141 mmol/ L 134-14 4 normal Not Available [facility] ([facility]) [address] [facility] [place], [address], 09/21/2024 09:07:39 09/21/19 25 09/21/2024 RENAL PANEL (10) potassium 4.8 mmol/ L 3.5-5. 2 normal Not Available [facility] ([facility]) [address] [facility] [place], [address], 09/21/2024 09:07:39 09/21/19 25 09/21/2024 RENAL PANEL (10) chloride 105 mmol/ L 96-106 normal Not Available [facility] ([facility]) [address] [facility] [place], [address], 09/21/2024 09:07:39 09/21/19 25 09/21/2024 RENAL PANEL (10) carbon dioxide, total 26 mmol/ L 20-29 normal Not Available [facility] ([facility]) [address] [place], [address], 09/21/2024 09:07:39 09/21/19 25 09/21/2024 RENAL PANEL (10) calcium 8.8 mg/dL 8.6-10 .2 normal Not Available [facility] ([facility]) [address] [place], [address], 09/21/2024 09:07:39 09/21/19 25 09/21/2024 RENAL PANEL (10) phosphorus 3.0 mg/dL 2.8-4. 1 normal Not Available [facility] ([facility]) [address] [place], [address], 09/21/2024 09:07:39 09/21/1909/21/2024 RENAL PANEL (10) albumin 3.5 g/dL 3.9-4. 9 below low normal Not Available [facility] ([facility]) [address] [place], [address], 09/21/2024 09:07:39 09/21/1909/21/2024 B-TYP E NATRI URETI C PEPTI DE B-type natriuretic peptide 405.4 pg/mL 0.0-10 0.0 above high normal Sieme ns ADVIA [facility] XP metho dolog y Not Available [facility] ([facility]) [address] [place], [address], 09/21/2024 09:07:39 10/09/19 25 10/09/2024 CBC WITH DIFFE RENTI AL/PL ATELE T WBC 8.0 x10e3 /uL 3.4-10 .8 normal Not Available [facility] ([facility]) [address] [place], [address], 10/09/2024 12:07:50 10/09/19 25 10/09/2024 CBC WITH DIFFE RENTI AL/PL ATELE T RBC 4.38 x10e6 /uL 4.14-5 .80 normal Not Available [facility] ([facility]) [address] [place], [address], 10/09/2024 12:07:50 10/09/19 25 10/09/2024 CBC WITH DIFFE RENTI AL/PL ATELE T hemoglobin 12.7 g/dL 13.0-1 7.7 below low normal Not Available [facility] ([facility]) [address] [place], [address], 10/09/2024 12:07:50 10/09/19 25 10/09/2024 CBC WITH DIFFE RENTI AL/PL ATELE T hematocrit 40.5 % 37.5-5 1.0 normal Not Available [facility] ([facility]) [address] [place], [address], 10/09/2024 12:07:50 10/09/19 25 10/09/2024 CBC WITH DIFFE RENTI AL/PL ATELE T MCV 93 fL 79-97 normal Not Available [facility] ([facility]) [address] [place], [address], 10/09/2024 12:07:50 10/09/19 25 10/09/2024 CBC WITH DIFFE RENTI AL/PL ATELE T MCH 29.0 pg 26.6-3 3.0 normal Not Available [facility] ([facility]) [address] [place], [address], 10/09/2024 12:07:50 10/09/19 25 10/09/2024 CBC WITH DIFFE RENTI AL/PL ATELE T MCHC 31.4 g/dL 31.5-3 5.7 below low normal Not Available [facility] ([facility]) [address] [place], [address], 10/09/2024 12:07:50 10/09/19 25 10/09/2024 CBC WITH DIFFE RENTI AL/PL ATELE T RDW 12.5 % 11.6-1 5.4 Not Available [facility] ([facility]) [address] [facility], [place], [address], 10/09/2024 12:07:50 10/09/19 25 10/09/2024 CBC WITH DIFFE RENTI AL/PL ATELE T platelets 182 x10e3 /uL 150-45 0 normal Not Available [facility] ([facility]) [address] [facility], [place], [address], 10/09/2024 12:07:50 10/09/19 25 10/09/2024 CBC WITH DIFFE RENTI AL/PL ATELE T neutrophils 78 % not estab. normal Not Available [facility] ([facility]) [address] [facility], [place], [address], 10/09/2024 12:07:50 10/09/19 25 10/09/2024 CBC WITH DIFFE RENTI AL/PL ATELE T lymphs 10 % not estab. normal Not Available [facility] ([facility]) [address] [facility], [place], [address], 10/09/2024 12:07:50 10/09/19 25 10/09/2024 CBC WITH DIFFE RENTI AL/PL ATELE T monocytes 8 % not estab. normal Not Available [facility] ([facility]) [address] [facility], [place], [address], 10/09/2024 12:07:50 10/09/19 25 10/09/2024 CBC WITH DIFFE RENTI AL/PL ATELE T eos 3 % not estab. normal Not Available [facility] ([facility]) [address] [facility], [place], [address], 10/09/2024 12:07:50 10/09/19 25 10/09/2024 CBC WITH DIFFE RENTI AL/PL ATELE T basos 0 % not estab. normal Not Available [facility] ([facility]) [address] [facility], [place], [address], 10/09/2024 12:07:50 10/09/19 25 10/09/2024 CBC WITH DIFFE RENTI AL/PL ATELE T immature cells RN HOUSE SUPERVISOR Not Available [facility] ([facility]) [address] [facility], [place], [address], 10/09/2024 12:07:50 10/09/19 25 10/09/2024 CBC WITH DIFFE RENTI AL/PL ATELE T neutrophils (absolute) 6.2 x10e3 /uL 1.4-7. 0 normal Not Available [facility] ([facility]) [address] [facility], [place], [address], 10/09/2024 12:07:50 10/09/19 25 10/09/2024 CBC WITH DIFFE RENTI AL/PL ATELE T lymphs (absolute) 0.8 x10e3 /uL 0.7-3. 1 normal Not Available [facility] ([facility]) [address] [place], [address], 10/09/2024 12:07:50 10/09/19 25 10/09/2024 CBC WITH DIFFE RENTI AL/PL ATELE T monocytes(ab solute) 0.6 x10e3 /uL 0.1-0. 9 normal Not Available [facility] ([facility]) [address] [place], [address], 10/09/2024 12:07:50 10/09/19 25 10/09/2024 CBC WITH DIFFE RENTI AL/PL ATELE T eos (absolute) 0.3 x10e3 /uL 0.0-0. 4 normal Not Available [facility] ([facility]) [address] [facility], [place], [address], 10/09/2024 12:07:50 10/09/19 25 10/09/2024 CBC WITH DIFFE RENTI AL/PL ATELE T baso (absolute) 0.0 x10e3 /uL 0.0-0. 2 normal Not Available [facility] ([facility]) [address] [facility], [place], [address], 10/09/2024 12:07:50 10/09/19 25 10/09/2024 CBC WITH DIFFE RENTI AL/PL ATELE T immature granulocytes 1 % not estab. Not Available [facility] ([facility]) [address] [facility], [place], [address], 10/09/2024 12:07:50 10/09/19 25 10/09/2024 CBC WITH DIFFE RENTI AL/PL ATELE T immature grans (abs) 0.0 x10e3 /uL 0.0-0. 1 Not Available [facility] ([facility]) [address] [facility], [place], [address], 10/09/2024 12:07:50 10/09/19 25 10/09/2024 CBC WITH DIFFE RENTI AL/PL ATELE T NRBC RN HOUSE SUPERVISOR Not Available [facility] ([facility]) [address] [facility], [place], [address], 10/09/2024 12:07:50 10/09/19 25 10/09/2024 CBC WITH DIFFE RENTI AL/PL ATELE T hematology comments: RN HOUSE SUPERVISOR Not Available [facility] ([facility]) [address] [facility], [place], [address], 10/09/2024 12:07:50 10/09/19 25 10/09/2024 COMP. METAB OLIC PANEL (14) glucose 93 mg/dL 70-99 normal Not Available [facility] ([facility]) [address] [facility], [place], [address], 10/09/2024 12:07:51 10/09/19 25 10/09/2024 COMP. METAB OLIC PANEL (14) BUN 40 mg/dL 8-27 above high normal Not Available [facility] ([facility]) [address] [place], [address], 10/09/2024 12:07:51 10/09/19 25 10/09/2024 COMP. METAB OLIC PANEL (14) creatinine 3.18 mg/dL 0.76-1 .27 above high normal Not Available [facility] ([facility]) [address] [place], [address], 10/09/2024 12:07:51 10/09/19 25 10/09/2024 COMP. METAB OLIC PANEL (14) eGFR 20 mL/mi n/1.7 3 >59 below low normal Not Available [facility] ([facility]) [address] [facility] [place], [address], 10/09/2024 12:07:51 10/09/19 25 10/09/2024 COMP. METAB OLIC PANEL (14) BUN/creatini ne ratio 13 10-24 normal Not Available [facility] ([facility]) [address] [facility] [place], [address], 10/09/2024 12:07:51 10/09/19 25 10/09/2024 COMP. METAB OLIC PANEL (14) sodium 140 mmol/ L 134-14 4 normal Not Available [facility] ([facility]) [address] [facility] [place], [address], 10/09/2024 12:07:51 10/09/19 25 10/09/2024 COMP. METAB OLIC PANEL (14) potassium 4.6 mmol/ L 3.5-5. 2 normal Not Available [facility] ([facility]) [address] [facility] [place], [address], 10/09/2024 12:07:51 10/09/19 25 10/09/2024 COMP. METAB OLIC PANEL (14) chloride 107 mmol/ L 96-106 above high normal Not Available [facility] ([facility]) [address] [facility] [place], [address], 10/09/2024 12:07:51 10/09/19 25 10/09/2024 COMP. METAB OLIC PANEL (14) carbon dioxide, total 21 mmol/ L 20-29 normal Not Available [facility] ([facility]) [address] [place], [address], 10/09/2024 12:07:51 10/09/19 25 10/09/2024 COMP. METAB OLIC PANEL (14) calcium 9.0 mg/dL 8.6-10 .2 normal Not Available [facility] ([facility]) [address] [place], [address], 10/09/2024 12:07:51 10/09/19 25 10/09/2024 COMP. METAB OLIC PANEL (14) protein, total 6.0 g/dL 6.0-8. 5 normal Not Available [facility] ([facility]) [address] [place], [address], 10/09/2024 12:07:51 10/09/19 25 10/09/2024 COMP. METAB OLIC PANEL (14) albumin 3.5 g/dL 3.9-4. 9 below low normal Not Available [facility] ([facility]) [address] [place], [address], 10/09/2024 12:07:51 10/09/19 25 10/09/2024 COMP. METAB OLIC PANEL (14) globulin, total 2.5 g/dL 1.5-4. 5 Not Available [facility] ([facility]) [address] [place], [address], 10/09/2024 12:07:51 10/09/19 25 10/09/2024 COMP. METAB OLIC PANEL (14) bilirubin, total 0.2 mg/dL 0.0-1. 2 normal Not Available [facility] ([facility]) [address] [place], [address], 10/09/2024 12:07:51 10/09/19 25 10/09/2024 COMP. METAB OLIC PANEL (14) alkaline phosphatase 69 IU/L 44-121 normal Not Available [facility] ([facility] [address] [place], [address], 10/09/2024 12:07:51 10/09/19 25 10/09/2024 COMP. METAB OLIC PANEL (14) AST (SGOT) 17 IU/L 0-40 normal Not Available [facility] ([facility]) [address] [place], [address], 10/09/2024 12:07:51 10/09/19 25 10/09/2024 COMP. METAB OLIC PANEL (14) ALT (SGPT) 16 IU/L 0-44 normal Not Available [facility] ([facility]) [address] [place], [address], 10/09/2024 12:07:51 10/09/19 25 10/09/2024 LIPID PANEL cholesterol, total 166 mg/dL 100-19 9 normal Not Available [facility] ([facility]) [address] [place], [address], 10/09/2024 12:07:51 10/09/19 25 10/09/2024 LIPID PANEL triglyceride s 112 mg/dL 0-149 normal Not Available [facility] ([facility]) [address] [place], [address], 10/09/2024 12:07:51 10/09/19 25 10/09/2024 LIPID PANEL HDL cholesterol 34 mg/dL >39 below low normal Not Available [facility] ([facility]) [address] [place], [address], 10/09/2024 12:07:51 10/09/19 25 10/09/2024 LIPID PANEL VLDL cholesterol christie 21 mg/dL 5-40 Not Available [facility] ([facility]) [address] [facility] [place], [address], 10/09/2024 12:07:51 10/09/1910/09/2024 LIPID PANEL LDL chol calc ([facility]) 111 mg/dL 0-99 above high normal Not Available [facility] ([facility]) [address] [facility], [place], [address], 10/09/2024 12:07:51 10/09/1910/09/2024 LIPID PANEL LDL calc comment: RN HOUSE SUPERVISOR Not Available [facility] ([facility]) [address] [facility], [place], [address], 10/09/2024 12:07:51 10/09/1910/09/2024 PSA TOTAL (REFL EX TO FREE) prostate specific Ag 1.8 NG/mL 0.0-4. 0 normal Duran ECLIA metho dolog y. Accor ding to the Ameri can Urolo gical Assoc iatio n, Serum PSA shoul d decre ase and remai n at undet ectab le level s after radic al prost atect kiran. The AUA defin es bioch emica l recur rence as an initi al PSA value 0.2 ng/mL or great er follo wed by a subse quent confi rmato ry PSA value 0.2 ng/mL or great er. Value s obtai boby with diffe rent assay metho ds or kits canno t be used inter patel eably . Resul ts canno t be inter prete d as absol yuniel evide nce of the prese nce or absen ce of nuno davis se. Not Available [facility] ([facility]) [address] [facility], [place], [address], 10/09/2024 12:07:52 10/09/1910/09/2024 PSA TOTAL (REFL EX TO FREE) reflex criteria Commen t The perce nt free PSA is perfo rmed on a refle x basis only when the total PSA is betwe en 4.0 and 10.0 ng/mL . Not Available [facility] ([facility]) [address] [facility], [place], [address], 10/09/2024 12:07:52 10/09/19 25 10/09/2024 HEMOG LOBIN A1C hemoglobin A1C 5.9 % 4.8-5. 6 above high normal Predi abete s: 5.7 - 6.4 Diabe amina: >6.4 Glyce ines contr ol for adult s with diabe amina: <7.0 Not Available [facility] ([facility]) [address] [facility], [place], [address], 10/09/2024 12:07:52 10/09/1910/09/2024 VITAM IN D, 25-HY DROXY vitamin D, 25-hydroxy 20.1 NG/mL 30.0-1 00.0 below low normal Vitam in D defic iency has been defin ed by the Insti tute of Medic ine and an Endoc rine Socie ty pract ice guide line as a level of serum 25-OH vitam in D less than 20 ng/mL (1,2) . The Endoc rine Socie ty went on to furth er defin e vitam in D insuf ficie ncy as a level betwe en 21 and 29 ng/mL (2). 1. IOM (Inst itute of Medic ine). 2009. Dieta ry refer ence intak es for calci um and D. Marcia ricardo [place]: The [facility] . 2. Caroline cole [place], Mayra sharma [place], [place] off-F james i EPPERSON, et al. Evalu ation , treat ment, and preve ntion of vitam in D defic iency : an Endoc rine Socie ty clini christie pract ice guide line. JCEM. 2010; 96(7) :1911 -30. Not Available [facility] ([facility]) [address] [facility], [place], [address], 10/09/2024 12:07:53 11/26/19 25 10/31/2024 NM, myoca rdial perfu jos scan, w/ stres s No observ ation record ed. [facility] [address], [place], [address], 11/25/2024 15:36:59 Result Notes None recorded. Problems Name Problem SNOMED Code Status Onset Date Resolution Date Notes Provider Name and Address Organization Details Recorded Time Diabetes mellitus 11747483 Active 2016 Donnie Melo APRN [address], [place], [address] , [place] - [facility] 2 14:45:00 Hyperten sive disorder 27947218 Active 2016 Florinamadison Melo APRN [address], [place], [address] , [place] - [facility] 2 14:45:57 Arthriti s 7353610 Active 2016 Donnie Melo APRN [address], [place], [address] , [place] - [facility] 2 14:44:57 Neuropat hy 939191137 Active 2016 Florinamadison Melo APRN [address], [place], [address] , [place] - [facility] 2 14:45:09 Injury of foot 053880867 Completed 201604/29/2019 [place] - [facility] 9 09:29:52 Benign prostati c hyperpla rozina 633672549 Active 2016 Donnie Melo APRN [address], [place], [address] , [place] - [facility] 2 14:44:53 Hypogona dism 28368965 Active 2016 Florinamadison Melo APRN [address], [place], [address] , [place] - [facility] 2 14:46:04 Umbilica l hernia 149117931 Active 2018 Not Available [facility] 12:41:54 Mixed hyperlip idemia 901371331 Active 2019 Eugonda Fryman, TEASEL GIG OPERATOR [address], [place], [address] , [place] - [facility] 2 14:49:04 Sleep apnea 89008221 Active 2019 Donnie Melo, TEASEL GIG OPERATOR [address], [place], [address] , [place] [facility] 2 14:45:58 Irritabi lity and anger 127501011 Completed 202007/08/2021 Mary Ann Jeffrey null, [place] - [facility] 1 08:58:45 Suspecte d COVID-19 163341210 Completed 03/05/2021 Removal Reason: Problem added by user [email or web address] from the COVID-19 watch flag Crystal Miguelito null, [place] - [facility] 1 16:51:44 SARS-CoV -2 Completed 04/09/2021 Removal Reason: Problem added by user [email or web address] from the COVID-19 watch flag Ludivina Gia null, [place] - [facility] 1 13:47:52 Anxiety 37611607 Active 2021 Donnie Melo, TEASEL GIG OPERATOR [address], [place], [address] , [place] [facility] 2 14:44:51 Gastroes ophageal reflux disease without esophagi tis 056902263 Active 2021 Donnie Melo, TEASEL GIG OPERATOR [address], [place], [address] , [place] [facility] 2 14:45:03 Chronic thoracic back pain 47403795896 9103 Active 2021 Donnie Melo, TEASEL GIG OPERATOR [address], [place], [address] , [place] [facility] 2 14:45:33 Abdomina l aortic aneurysm 235928437 Active 2021 Donnie Melo, TEASEL GIG OPERATOR [address], [place], [address] , [place] [facility] 2 15:05:31 Ear pressure sensatio n 266434719 Active 2022 Litzy Lanza, TEASEL GIG OPERATOR [address], [place], [address] , [place] - [facility] 3 15:12:56 Abdomina l aortic aneurysm without rupture 26252632 Active 2024 Donnie Melo APRN [address], [place], [address] , [place] - [facility] 5 09:31:59 Coronary arterios clerosis 74400160 Active 2024 Donnie Melo APRN [address], [place], [address] , [place] - [facility] 5 09:32:27 Chronic kidney disease stage 3B 308097838 Active 2024 Donnie Melo APRN [address], [place], [address] , [place] - [facility] 5 09:33:39 Congesti ve heart failure 39918560 Active 2024 Sanam Argueta [facility] [place] - [facility] 5 11:09:50 Problem Notes None recorded. Procedures Surgical History Date Name Laterality Status Provider Name and Address Organization Details Recorded Time 10/09/19 25 Advance Care Planning completed Sanam Argueta [place] - [facility] 10/08/2024 08:49:21 10/09/19 25 Functional Status Assessed completed Sanam [place] - [facility] 025 08:49:21 02/08/20 24 Bladder Scan completed Danielle Aguayo APRN [address], [place], [address], [place] [facility] 02/08/2024 11:05:28 10/03/19 24 Advance Care Planning completed Litzy Underwood [place] [facility] 10/03/2023 08:24:38 10/03/19 24 Functional Status Assessed completed Litzy Underwood [place] [facility] 10/03/2023 08:24:38 02/14/20 23 Cerumen Removal completed Donnie Melo APRN [address], [place], [address], [place] [facility] 02/13/2023 13:29:03 11/22/19 23 Cerumen Removal completed Litzy Lanza APRN [address], [place], [address], [place] [facility] 11/23/2022 12:35:56 09/27/19 23 Cerumen Removal completed Donnie Melo, TEASEL GIG OPERATOR [address], [place], [address], [place] [facility] 09/26/2022 13:09:16 07/20/19 23 Cryosurgery Dermatology completed Marina Whitley, TEASEL GIG OPERATOR [address], [place], [address], [place] [facility] 07/20/2022 17:07:15 07/15/19 23 [...] completed Marina Arreaga APRN [address], [place], [address], [place] [facility] 02/28/2019 16:58:27 02/29/20 19 Shave Biopsy, Scalp, Neck, Hands, Feet, Genitalia completed Marina Arreaga APRN [address], [place], [address], [place] [facility] 02/28/2019 16:57:48 colonoscopy completed Sanam [place] - [facility] 10/08/2024 09:33:30 dental surgery completed Litzy Underwood [place] [facility] 12/10/2024 08:15:54 Colonoscopy completed Litzy [place]wood [place] [facility] 12/10/2024 08:15:54 Vasectomy completed Litzy Underwood [place] - [facility] 12/10/2024 08:15:54 Unlisted px foot/toes [...] TAKE ONE (1) TABLET BY MOUTH EVERY MONDAY-W -MONDAY active Not Available Not Available No [...] e 50 mcg/actua tion nasal spray,michael pension [place] 1 spray every day by intranas al [...] t Available Vitals Date Recorded Body height Respiratory rate Body mass index (BMI) Body weight Heart rate Oxygen saturation Oxygen saturation in Arterial blood by Pulse oximetry Body temperature Systolic blood pressure Diastolic blood pressure Provider Name and Address Organization Details Last Updated DateTime 182.88 cm 18 /min 38 kg/m2 985135. 86 g 64 /min 94 % 94 % 97.8 [degF] 138 mm[Hg] 76 mm[Hg] Sanam Ellie [place] - [facility] 5 14:32:30 Date Recorded Body height Body mass index (BMI) Body weight Body temperature Oxygen saturation Oxygen saturation in Arterial blood by Pulse oximetry Respiratory rate Heart rate Systolic blood pressure Diastolic blood pressure Provider Name and Address Organization Details Last Updated DateTime 5 182.88 cm 39.8 kg/m2 973836. 96 g 98.2 [degF] 91 % 91 % 18 /min 66 /min 144 mm[Hg] 78 mm[Hg] Sanam Ellie [place] - [facility] 5 10:06:51 Date Recorded Body height Body mass index (BMI) Body weight Body temperature Heart rate Oxygen saturation Oxygen saturation in Arterial blood by Pulse oximetry Respiratory rate Systolic blood pressure Diastolic blood pressure Provider Name and Address Organization Details Last Updated DateTime 5 182.88 cm 37.7 kg/m2 577354. 68 g 97.9 [degF] 66 /min 95 % 95 % 18 /min 130 mm[Hg] 82 mm[Hg] Sanam [place] [facility] 5 09:29:29 Date Recorded Body height Heart rate Oxygen saturation Oxygen saturation in Arterial blood by Pulse oximetry Respiratory rate Body mass index (BMI) Body weight Systolic blood pressure Diastolic blood pressure Provider Name and Address Organization Details Last Updated DateTime 5 182.88 cm 63 /min 95 % 95 % 18 /min 38.7 kg/m2 421973. 83 g 142 mm[Hg] 80 mm[Hg] Litzy Underwood [place] [facility] 5 09:03:49 Date Recorded Body height Body mass index (BMI) Body weight Respiratory rate Heart rate Oxygen saturation Oxygen saturation in Arterial blood by Pulse oximetry Systolic blood pressure Diastolic blood pressure Provider Name and Address Organization Details Last Updated DateTime 5 182.88 cm 38.6 kg/m2 150319. 33 g 18 /min 67 /min 94 % 94 % 168 mm[Hg] 92 mm[Hg] Litzy Underwood [place] [facility] 5 08:20:36 Social History Question Answer Notes LastModified by Organizat ion Details LastModified Time Tobacco Smoking Status Former Smoker stopped in 2019 Sanam StearOCTAVIO contreras 04/01/2024 09:29:25 Able To Swim? Yes [email or web address] Informati on not available 02/24/2017 Do You Have An Advance Directive? Yes Information not available 12/10/2024 How Many Years Have You Consumed Alcohol? 45 Information not available 12/10/2024 Are You Blind Or Do You Have Difficulty Seeing? No [email or web address] Information not available 02/24/2017 Is Blood Transfusion [...] Have Serious Difficulty Hearing? Yes Left Ear Information not available 09/24/2021 What Type Of Diet Are You Following? REGULAR [email or web address] Information not available 02/24/2017 Which Illicit Or Recreational Drugs Have You Used? [place] Information not available 12/10/2024 Have You Processed [...] Or The Highest Degree You Have Received? [id number] Information not available 07/15/2022 Swimming/diving Yes [email or web address] Informa tion not available 02/24/2017 Have There Been Any Changes To Your Family Or Social Situation? No Information not available 07/15/2022 What Is The Fluoride Status Of Your Home? Fluoridated Information not available 07/15/2022 When Did You Quit Smoking? 1-5yearssincel roderick Information not available 07/15/2022 Hard Of Hearing Or Deaf In One Or Both Ears? No [email or web address] Information not available 02/24/2017 Have You Recently Or Are You Planning To Travel To An Area With Zika Virus? No Information not available 07/15/2022 How Many Years Have You Used Illicit Or Recreational Drugs? 45 Information not available 12/10/2024 Legally Blind In One Or Both Eyes? No [email or web address] Information not available 02/24/2017 Live Alone Or With Others? With Others [email or web address] Information not available 02/24/2017 Do You Have A Medical Power Of Train Dispatcher? No Information not available 07/15/2022 What Was The Date Of Your Most Recent Tobacco Screening? 08/05/2024 Information not available 08/05/2024 How Many Children Do You Have? 1 [email or web address] Information not available 02/24/2017 What Is Your Current Pack Years? [email or web address] ars Information not available 10/13/2022 What Is Your Relationship Status? [email or web address] Information not available 02/24/2017 Do You Use Your Seat Belt Or Car Seat Routinely? Yes Information not available 12/10/2024 Seat Belts Used Routinely Yes [email or web address] Information not available 02/24/2017 Are You Sexually Active? No Information not available 12/10/2024 Smoke Alarm In Home Yes [email or web address] Information not available 02/24/2017 Do You Have Smoke And Carbon Monoxide Detectors In Your Home? Yes Information not available 07/15/2022 At What Age Did You Start Smoking Tobacco? 15 Information not available 10/13/2022 Are You Passively Exposed To Smoke? No Information not available 07/15/2022 How Much Tobacco Do You Smoke? 1.5 PPD [email or web address] Information not available 02/24/2017 Do You Use Sunscreen Routinely? No [email or web address] Information not available 02/24/2017 Has Tobacco Cessation Counseling Been Provided? No Information not available 10/03/2023 On What Date Was Tobacco Cessation Counseling Provided? 08/27/2021 [email or web address] Information not available 08/27/2021 How Many Years Have You Smoked Tobacco? 50 Stopped 4 Years In 2023 Information not available 04/01/2024 Do You Have Difficulty Walking Or Climbing Stairs? Yes [email or web address] Information not available 09/24/2021 Sex: Male Functional Status Question Answer Note LastModified by Organizat ion Details LastModified Time Do you or have you ever used smokeless tobacco? Never used smokeless tobacco Information not available 12/10/2024 Are you currently employed? No Information not available 12/10/2024 Do you have transportation difficulties? No Information not available 07/15/2022 Are you able to care for yourself? Yes [email or web address] Information n ot available 02/24/2017 Do you have difficulty dressing or bathing? No [email or web address] Information not available 02/24/2017 Do you or [...] 12/10/2024 Are you able to walk? YESWOREST [email or web address] Information not available 02/24/2017 Do you have difficulty doing errands alone? No [email or web address] Information not available 02/24/2017 What is your occupation? retired Information not available 09/24/2021 Mental Status Question Answer Note LastModified by Organizat ion Details LastModified Time Do you feel stressed (tense, restless, nervous, or anxious, or unable to sleep at night)? [id number] Information not available 07/15/2022 Do you have difficulty concentrating, remembering or making decisions? No [email or web address] Information no t available 02/24/2017 Family History [...] high-dose, trivalent, PF 024 completed Not Available [facility] 12/10/2024 07:59:34 COVID-19, mRNA, LNP-S, PF, 50 mcg/0.5 mL 024 completed Not Available [facility] 12/10/2024 07:59:34 zoster, unspecified formulation 017 completed Not Available [facility] 06/19/2023 09:01:39 pneumococcal, unspecified formulation 016 completed Not Available [facility] 06/19/2023 09:01:39 zoster recombinant 025 cancelled patient objection Donnie Melo, TEASEL GIG OPERATOR [address], [address], [place] [facility] 10/08/2024 10:12:38 Influenza, split virus, quadrivalent, preservative 020 completed Not Available [facility] 06/19/2023 09:01:39 COVID-19, mRNA, LNP-S, PF, 30 mcg/0.3 mL dose 021 completed Litzy ivan [place] - [facility] 08/19/2022 10:31:53 COVID-19, mRNA, LNP-S, PF, 30 mcg/0.3 mL dose 021 completed Litzy ivan [facility] 08/19/2022 10:31:53 COVID-19, mRNA, LNP-S, PF, 30 mcg/0.3 mL dose completed Not Available [facility] 06/19/2023 09:01:39 COVID-19 vaccine, vector-nr, rS-Ad26, PF, 0.5 mL completed Litzy Kj null, [facility] 08/19/2022 10:31:53 Influenza, split virus, quadrivalent, preservative 018 completed Litzy Kj null, [facility] 08/19/2022 10:31:53 Influenza, split virus, quadrivalent, preservative 018 completed Litzy Kj null, [facility] 08/19/2022 10:31:53 Influenza, split virus, quadrivalent, preservative 019 completed Litzy Kj null, [facility] 08/19/2022 10:31:53 Influenza, recombinant, quadrivalent, PF completed Litzy Kj null, [facility] 08/19/2022 10:31:53 Influenza, high-dose, quadrivalent, PF completed Litzy Kj null, [facility] 08/19/2022 10:31:53 Influenza, high-dose, quadrivalent, PF completed Litzy Dwyerler null, [facility] 08/19/2022 10:31:53 Pneumococcal conjugate PCV20, polysaccharide [id number] conjugate, adjuvant, PF completed Litzy Kj null, [facility] 08/19/2022 10:31:53 COVID-19, mRNA, LNP-S, PF, 30 mcg/0.3 mL dose, ramu-sucrose completed Litzy Kj null, [facility] 08/19/2022 10:31:53 COVID-19, mRNA, LNP-S, bivalent, PF, 30 mcg/0.3 mL dose completed Litzy Kj null, [facility] 08/19/2022 10:31:53 pneumococcal polysaccharide PPV23 019 completed Litzy Underwood null, [place] [facility] 08/19/2022 10:31:53 Tdap 018 completed Litzy [place] [facility] 08/19/2022 10:31:54 Pneumococcal conjugate PCV 13 021 completed Litzy [place] [facility] 08/19/2022 10:31:54 Influenza, high-dose, quadrivalent, PF 023 completed Litzy [place] [facility] 06/13/2023 14:30:56 RSV, recombinant, protein subunit RSVpreF, adjuvant reconstituted, 0.5 mL, PF 023 completed Litzy [place] [facility] 06/13/2023 14:30:56 COVID-19, mRNA, LNP-S, PF, 50 mcg/0.5 mL 023 completed Litzy [place] null, [place] [facility] 06/13/2023 14:30:56 Past Encounters Encounter ID Performer Location Encounter Start Date Encounter Closed Date Diagnosis/Indication Diagnosis SNOMED-CT Code Diagnosis ICD10 Code Diagnosis Note [id number] Mary Ann Murphy [facility] [address] [place] [address] 02/24/2017 08:52:02 02/24/2017 10:06:10 Diabetes mellitus 65788309 E11.9 Pain of joint 45529662 M 25.50 Low back pain 075291164 M54.5 Hypertensive disorder 38 067013 I10 Body mass index 30+ - obesity 812239352 Z68.39 Screening for cardiovascular system disease 522302593 Z13.6 Benign pro static hyperplasia 660037542 N40.0 Viral screening 41341507 4 Z11.59 Hypogonadism 18500455 E2 9.1 Cough 84206287 R05 Spasm of back muscles 20 1119883 M62.830 Endocrine/ metabolic screening 319504422 Z13.228 Screening for malignant neoplasm of prostate 502465034 Z12.5 [id number] Mary Ann Murphy [facility] [address] [address] 07/13/2017 08:50:15 07/13/2017 09:55:16 Benign prostatic hyperplasia 055545909 N40.0 Neuropathy 623458516 G62 .9 Arthritis 7138231 M19.90 Hypertensive disorder 38 905616 I10 Diabetes mellitus 362464 09 E11.9 Low back pain 787134025 M54.5 Pain of joint 39220499 M 25.50 Cough 20580331 R05 Spasm of back muscles 20 2390906 M62.830 Body mass index 30+ - obesity 593324219 Z68.39 Administra tion of influenza vaccine 28298491 Z23 Hypogonadism 62644215 E2 9.1 Testostero ne level below reference range 357187697 R79.89 [id number] Mary Ann Murphy [facility] [address] [place], [place] [address] [place] [address] 10/17/2017 08:20:25 10/17/2017 09:29:31 Hypogonadism 11343230 E29.1 Benign pro static hyperplasia 512427790 N40.0 Neuropathy 141496999 G62 .9 Arthritis 4675421 M19.90 Hypertensive disorder 38 730005 I10 Diabetes mellitus 637592 09 E11.9 Renewal of prescription 046671689 Z76.0 Cough 55532169 R05 Screening for malignant neoplasm of colon 988277095 Z12.11 Body mass index 30+ - obesity 699234698 Z68.39 [id number] Mary Ann Murphy [address] [place] [address] 01/16/2018 09:50:21 01/16/2018 11:05:31 Hypogonadism 41641017 E29.1 Benign pro static hyperplasia 119927575 N40.0 Neuropathy 530783861 G62 .9 Arthritis 9161652 M19.90 Hypertensive disorder 38 541238 I10 Diabetes mellitus 546069 09 E11.9 Umbilical hernia 2401917 07 K42.9 Neoplasm of skin 2690044 04 D49.2 [id number] Mary Ann Murphy [address] [place] [address] 04/26/2018 08:28:04 04/26/2018 10:18:58 General examination of patient 897785921 Z00.00 Screening for malignant neoplasm of prostate 971378068 Z12.5 Exercises education, guidance, and counseling 392557014 Z71.82 Dietary ma nagement surveillance 801517219 Z71.3 Hypogonadism 00448459 E2 9.1 Administra tion of influenza vaccine 71540207 Z23 Screening for malignant neoplasm of colon 482576544 Z12.11 Administra tion of diphtheria, pertussis, and tetanus vaccine 761374256 Z23 Umbilical hernia 9082733 07 K42.9 Neck pain 03476287 M54.2 Diabetes mellitus 239812 09 E11.9 Hypertensive disorder 38 167897 I10 [id number] Emperatriz Medina [address] [place] 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 [address] 12/28/2018 09:18:31 12/28/2018 09:58:20 Diabetes mellitus 58358927 E11.9 Hypertensive disorder 38 885726 I10 Arthritis 6438389 M19.90 Neuropathy 431181364 G62 .9 Benign pro static hyperplasia 926887577 N40.0 Neoplasm o f uncertain behavior of skin 38743198 D48.5 [id number] Emperatriz Medina [address] [place] [address] 02/04/2019 10:48:51 02/04/2019 13:06:54 Body mass index 30+ - obesity 589141222 Z68.33 Abscess 191046753 L02.91 [id number] Marina Arreaga TEASEL GIG OPERATOR [address] [place] [address] 02/13/2019 09:24:16 02/13/2019 10:34:29 Neoplasm of uncertain behavior of skin 36512067 D48.5 impression - neurofibro ma Senile hyperkeratosis 39 6960036 L82.1 offered reassuranc e [id number] Marina Arreaga APRN [address] [place] [address] 02/28/2019 15:30:11 02/28/2019 16:53:46 Neoplasm of uncertain behavior of skin 91439579 D48.5 impression - neurofibro ma Skin tag 199962151 L91.8 removed due to irritation [id number] Mary Ann Murphy [facility] [address] [place] [place] [address] 03/04/2019 10:07:50 03/04/2019 11:19:00 Hypogonadism 93048181 E29.1 Hypertensive disorder 38 833722 I10 Diabetes mellitus 005213 09 E11.9 Knee pain 70620479 M25.5 61 Anti-nucle ar factor detected 598556846 R76.8 Smoker 79415177 F17.381 [id number] Mary Ann Murphy [facility] [address] [place], [place] [address] [place] [address] 04/29/2019 08:09:24 04/29/2019 09:35:58 Adult health examination 046414623 Z00.00 Depression screening 171 899062 Z13.89 Examinatio n of blood pressure 238476618 Z01.30 Diet education 10248925 Z71.3 Counseling 486835780 Z71 .82 Exercise counseling . Patient encouraged to exercise 30 minutes 5 days a week. At [facility] ed risk for falls 297422790 Z91.81 STEADI FAST screening score of __0___. Advance care planning 71 0324104 Z71.89 Hypogonadism 01007810 E2 9.1 Active or passive immunization 968965726 Z23 Smoker 70196158 F17.200 Insomnia 794088955 G47.0 0 Benign pro static hyperplasia 666300819 N40.0 Diabetes mellitus 676815 09 E11.9 Hypertensive disorder 38 675589 I10 [id number] Mary Ann Murphy [address] [place] [address] 09/06/2019 12:53:47 09/06/2019 13:59:43 Screening for malignant neoplasm of colon 282983633 Z12.11 Smoker 70235879 F17.200 Nicotine dependence 5629 4008 Z87.876 [id number] Mary Ann Murphy [address] [place] [address] 11/05/2019 09:19:39 11/05/2019 10:08:28 Diabetes mellitus 56411930 E11.9 Hypertensive disorder 38 330946 I10 Hypogonadism 11541448 E2 9.1 Arthritis 7079321 M19.90 Ex-smoker 5084979 Z87.89 1 Increased frequency of urination 845658692 R35.0 Restless sleep 39717176 G47.9 Fatigue 99091866 R53.83 Vitamin D deficiency 347 76407 E55.9 Mixed hyperlipidemia 267 429474 E78.2 [id number] Mary Annjuwan Murphy [address] [place] [address] 02/11/2020 10:26:51 02/11/2020 11:36:51 Anxiety 72115638 F41.9 Gastroesop hageal reflux disease 227721798 K21.9 Hypertensive disorder 38 397991 I10 Mixed hyperlipidemia 267 005004 E78.2 Sleep apnea 95459148 G47 .30 Hyperglycemia 64732338 R 73.9 [id number] Mary Ann Murphy [address] [place] [address] 02/20/2020 13:35:11 02/20/2020 14:03:34 Acute low back pain 036751079 M54.5 [id number] Mary Ann Murphy [address] [place] [address] 03/20/2020 14:31:03 03/20/2020 15:07:30 Knee pain 33214813 M25.561 Acute low back pain 2788 50789 M54.5 [id number] Mary Ann Murphy [address] [address] 06/16/2020 08:34:14 06/16/2020 09:53:55 General examination of patient 027080600 Z00.00 Screening for malignant neoplasm of prostate 026817552 Z12.5 Endocrine/ metabolic screening 400181449 Z13.228 Dietary ma nagement surveillance 408944504 Z71.3 Osteoarthr itis of knee 220338009 M17.9 Arthritis 5489295 M19.90 Diabetes mellitus 243854 09 E11.9 Hypertensive disorder 38 845370 I10 [id number] Mary Annjuwan Murphy[address] [place] [address] 09/24/2020 09:13:53 09/24/2020 10:50:33 Sleep apnea 42634817 G47.30 Mixed hyperlipidemia 267 786437 E78.2 Hypogonadism 06822266 E2 9.1 Neuropathy 033512014 G62 .9 Arthritis 8241004 M19.90 Hypertensive disorder 38 937911 I10 Diabetes mellitus 216592 09 E11.9 Body mass index 30+ - obesity 300610593 Z68.39 Vitamin D deficiency 347 23254 E55.9 Tinea corporis 66428149 B35.4 Former hea vy tobacco smoker 7132575367 34291 Z87.463 [id number] Mary Annjuwan Murphy [address] [place] [address] 01/28/2021 15:33:50 01/28/2021 17:00:03 Body mass index 30+ - obesity 343572066 Z68.37 Arthritis 9992763 M19.90 Diabetes mellitus 174897 09 E11.9 Hypertensive disorder 38 293204 I10 Thoracic back pain 18167 8004 M54.6 Neck pain 84705276 M54.2 Irritabili ty and anger 246618864 R45.4 [id number] Mary Annjuwan Murphy[address] [place] [address] 03/01/2021 10:18:02 03/01/2021 11:45:57 Low back pain 078655723 M54.5 Irritabili ty and anger 488975306 R45.4 Hypertensive disorder 38 804103 I10 Cervical radiculopathy 51291455 M54.12 [id number] Mary Annjuwan Murphy[address] [place] [address] 03/05/2021 16:13:34 03/09/2021 17:24:38 Viral screening 741264913 Z11.59 [id number] Mary Annjuwan Murphy[address] [place] [address] 04/06/2021 08:51:46 04/06/2021 10:12:41 Mixed hyperlipidemia 322074767 E78.2 Hypertensive disorder 38 198701 I10 Diabetes mellitus 064258 09 E11.9 Dizziness 432767014 R42 Renewal of prescription 695856816 Z76.0 Immunization due 4189960 08 Z28.3 Administra tion of influenza vaccine 26664634 Z23 Viral screening 72041403 4 Z11.59 Sleep apnea 38792961 G47 .30 [id number] Mary Ann Murphy[address] [place] [address] 07/08/2021 08:18:26 07/08/2021 09:43:44 Adult health examination 206326005 Z00.00 Depression screening 171 668084 Z13.89 Diet education 19539800 Z71.3 Counseling 720763651 Z71 .82 Exercise counseling . Patient encouraged to exercise 30 minutes 5 days a week. At [facility] ed risk for falls 936970798 Z91.81 STEADI FAST screening score of __2___. Advance care planning 71 7389525 Z71.89 Body mass index 30+ - obesity 600765336 Z68.36 Hypertensive disorder 38 138694 I10 elevated- uncontroll ed Diabetes mellitus 443422 09 E11.9 Rib pain 559569432 R07.8 1 Immunization due 0942891 08 Z28.3 [id number] Mary Annjuwan Murphy [address] [place] [address] 08/27/2021 12:45:01 08/27/2021 13:27:36 Low back pain 462074555 M54.50 Tinea cruris 573643789 B 35.6 Abscess of skin and/or subcutaneous tissue 20200680 L02.91 [id number] Emperatriz Medina [facility] [address] [place] [address] 09/23/2021 10:10:40 09/23/2021 11:39:41 Neuropathy 508512614 G62.9 Arthritis 0377844 M19.90 gabapentin does help some [id number] [facility] [address] [place] [address] 09/24/2021 10:07:48 09/24/2021 11:18:41 Body mass index 30+ - obesity 795165646 Z68.36 36.8 Benign pro static hyperplasia 115827084 N40.1 -continue terazosin 10mg daily. Hypertensive disorder 38 900282 I10 Patient will monitor blood pressure and report if unable to control or if they develop new symptoms. Nocturia 942922168 R35.1 [id number] [facility] [address] [place] [address] 10/21/2021 13:31:40 10/21/2021 14:47:43 Body mass index 30+ - obesity 591351770 Z68.36 36.8 Benign pro static hyperplasia 169182358 N40.1 -continue terazosin 10mg daily. Hypertensive disorder 38 197989 I10 Patient will monitor blood pressure and report if unable to control or if they develop new symptoms. Nocturia 691259654 R35.1 Microscopic hematuria 19 1783750 R31.29 Sleep apnea 26133817 G47 .30 [id number] Emperatriz Medina [facility] [address] [place] [address] 11/08/2021 12:37:11 11/08/2021 13:33:02 Diabetes mellitus 63985195 E11.9 Arthritis 9004157 M19.90 gabapentin does help somept has restarted taking diclofenac I advised him to do it for about 10 days then give himself a respite as his last CMP showed some renal insufficie ncy and we will recheck a CMP today Screening for malignant neoplasm of colon 780675467 Z12.11 Medication review done 882118775 Z76.89 by this NPmedicati on record printed and reviewed every medication with pthe is interested in stopping medication s if possible because he takes so much [id number] Emperatriz Medina [facility] [address] [place] [address] 12/30/2021 09:09:25 12/30/2021 11:16:22 Bilateral shoulder joint pain [id number] 8647028 M25.511 pain and decreased ROM bilaterall y R>L Nicotine dependence 5629 4008 Z87.891 Ex-smoker 2084947 Z13.6 Disorder of eye 52456427 4 H57.9 encouraged pt to see his opthamolog ist [id number] Donnie Melo [address] [address] 03/08/2022 13:54:58 03/08/2022 14:55:16 Neuropathy 273009406 G62.9 Pt agrees with plan of [facility] reviewed # [id number] edication compliance discussedL ast uds: 03/08/22Con trol substance agreement on fileonce he sees pain management he will no long be given any chronic control substances Chronic th oracic back pain 9389933056 57758 M54.6 Hypertensive disorder 38 855423 I10 Arthritis 2711940 M19.90 Diabetes mellitus 208721 09 E11.9 labs in 2 months Gastroesop hageal reflux disease without esophagitis 129123015 K21.9 Abdominal aortic aneurysm 276612624 I71.4 follow up with cardiology [id number] Donnie Melo [address] [address] 07/15/2022 08:22:17 07/15/2022 10:30:58 Adult health examination 242608577 Z00.00 Depression screening 171 643399 Z13.89 Examinatio n of blood pressure 609488558 Z01.30 Diet education 25435310 Z71.3 Counseling 721403508 Z71 .82 Exercise counseling . Patient encouraged to exercise 30 minutes 5 days a week. At [facility] ed risk for falls 507396911 Z91.81 STEADI FAST screening score of ___7__. Advance care planning 71 3368278 Z71.89 Finding of body mass index 599535402 E66.3 Mixed hyperlipidemia 267 600417 E78.2 Hypertensive disorder 38 205945 I10 Gastroesop hageal reflux disease without esophagitis 238250589 K21.9 Diabetes mellitus 497255 09 E11.9 Chronic th oracic back pain 2649386833 37665 M54.6 Benign pro static hyperplasia 415016762 N40.0 Arthritis 2009896 M19.90 Abdominal aortic aneurysm 792611697 I71.40 Anxiety 56909285 F41.9 Decreased hearing 245549 001 H91.93 Skin lesion 95195054 L98 .9 Kidney disease 28400138 N08 last cre 1.6- discussed with pt about stopping metformin, nsaids, once labs are resulted if cre still elevated. pt will return tues for result. I told pt at that time will will develop a plan on how we are going to stop those meds and what meds we are going to replace them with [id number] Donnie Melo [address] [address] 07/19/2022 13:27:21 07/19/2022 13:59:14 Kidney disease 79889096 N08 last cre 1.6- now 1.5 discussed with pt about stopping metformin, nsaids,sta rting trajenta 5mg- 4 weeks of samples givenrefer to nephrology [id number] Marina Arreaga [facility] [address] [place] [address] 07/20/2022 16:01:28 07/20/2022 17:30:16 Skin tag 434275193 L91.8 He may consider removal at a later date. He would like to check with insurance. Verruca vulgaris 7204473 3 B07.9 cryo applied [id number] Donnie Melo [address] [address] 08/19/2022 10:10:14 08/19/2022 11:25:02 Diabetes mellitus 10909627 E11.9 Long-term drug therapy 453059576 Z79.899 Chronic ne ck pain for greater than 3 months 6547936817 29322 M54.2 Chronic back pain 751402 002 G89.29 will do trial of tramadol- bring back and evaluate [id number] Donnie Melo [address] [address] 10/13/2022 13:36:24 10/13/2022 14:30:51 Hypertensive disorder 37565944 I10 restart metoprolol - monitor bp close call office for any concerns Diabetes mellitus 084938 09 E11.9 return 3 months for labscontin ue diet, meds and exercise planmonito r glucose Anxiety 72525933 F41.9 Neuropathy 827012352 G62 .9 [id number] Donnie Melo [address] [address] 09/26/2022 10:50:22 09/26/2022 11:58:24 Diabetes mellitus 24199495 E11.9 Hypogonadism 69726260 E2 9.1 Fatigue 92292998 R53.83 Impacted c erumen in left ear 3577367601 813399 H61.22 Hearing loss 86578380 H9 1.92 [id number] Donnie Melo [address] [address] 10/04/2022 08:30:55 10/04/2022 09:13:35 Carotid bruit present 736762505 R09.89 follow up with cardiology as scheduled Acute left otitis media 707513612 H66.92 Otitis ext shubham of left ear 6838617096 819366 H60.92 Low back pain 971136419 M54.50 steroids Dizziness 705009571 R42 noises like crickets in head, heart beat in ear- r/o lesion may need mrigo to ed if symptoms continue or worsen [id number] [facility] [address] [place] [address] 10/14/2022 10:28:41 10/14/2022 11:26:28 Benign prostatic hyperplasia 878482423 N40.1 -continue terazosin 10mg daily. Hypertensive disorder 38 116622 I10 Patient will monitor blood pressure and report if unable to control or if they develop new symptoms. Nocturia 481883269 R35.1 Body mass index 30+ - obesity 336765441 Z68.36 36.8 Obstructiv e sleep apnea syndrome 98543796 G47.33 Testostero ne level below reference range 384317297 R89.1 [id number] Litzy Lanza [address] [address] 11/21/2022 14:41:25 11/21/2022 15:34:26 Ex-smoker 1709581 Z87.891 Ear pressu re sensation 550468931 H93.8X9 [id number] Donnie Melo [address] [address] 01/12/2023 08:11:54 01/12/2023 08:58:45 Ear pressure sensation 447962685 H93.8X9 Anxiety 70305161 F41.9 discussed med in detail and poss side effects- instructed to call for any issuesPati ent identified triggers for anxiety and impact of anxious thinking on functionin g. Discussed strategies to regulate symptoms and need for compliance with treatment. Arthritis 0927496 M19.90 Benign pro static hyperplasia 018709045 N40.1 Chronic th oracic back pain 6425194876 00810 M54.6 Diabetes mellitus 145992 09 E11.9 return 3 months for labscontin ue diet, meds and exercise planmonito r glucose Hypertensive disorder 38 275540 I10 Mixed hyperlipidemia 267 858857 E78.2 Neuropathy 096889748 G62 .9 Sleep apnea 73618828 G47 .30 Hypogonadism 64155178 E2 9.1 Gastroesop hageal reflux disease without esophagitis 018049334 K21.9 Erectile dysfunction 860 556518 F52.21 discussed med in detail and poss side effects- instructed to call for any issues Muscle pain 92946708 M79 .10 discussed med in detail and poss side effects- instructed to call for any issues [id number] Donnie Melo [address] [address] 02/13/2023 10:52:30 02/13/2023 13:16:44 Muscle pain 98700069 M79.10 discussed med in detail and poss side effects- instructed to call for any issues Ex-smoker 7097496 Z87.89 1 Screening for malignant neoplasm of respiratory tract 193445935 Z12.2 Former hea vy tobacco smoker 7675407653 55108 Z87.891 Former tobacco user- stopped 3+ yrs ago Impacted c erumen in left ear 9008664472 740995 H61.22 [id number] Donnie Melo [address] [address] 04/06/2023 08:16:21 04/06/2023 09:25:29 Body mass index 30+ - obesity 944905276 Z68.36 BMI 36.4 Obesity 657367714 E66.9 Hypertensive disorder 38 331710 I10 Mixed hyperlipidemia 267 096186 E78.2 Neuropathy 600527224 G62 .9 Diabetes mellitus 146645 09 E11.9 continue diet, meds and exercise planmonito r glucose Fatigue 47123426 R53.83 [id number] Donnie Melo [address] [address] 04/27/2023 16:12:41 04/27/2023 16:55:03 Anxiety 56452945 F41.9 discussed med in detail and poss side effects- instructed to call for any issuesPati ent identified triggers for anxiety and impact of anxious thinking on functionin g. Discussed strategies to regulate symptoms and need for compliance with treatment. Numbness of face 2482076 09 R20.0 Numbness a nd tingling sensation of skin 3307895696 02 R20.2 Abdominal aortic aneurysm 617529827 I71.40 due to aaa and symptoms pt needs a mri to r/o aneurysm in brain [id number] Donnie Melo [address] [address] 06/13/2023 14:17:30 06/13/2023 15:03:00 Diarrhea 66808835 R19.7 increase fluidsif pain worsens or no improvemen t go to ed for evalBratt diet Occult blo od detected in feces 09652120 R19.5 performed fecal occult blood test in the office and stool tested positive for blood in officelabs gi referral Fatigue 71144473 R53.83 [id number] Donnie Melo [address] [address] 06/19/2023 08:57:25 06/19/2023 09:53:19 Hypogonadism 45400825 E29.1 Occult blo od detected in feces 40806718 R19.5 gi referral Hemorrhoids 06866450 K64 .9 Prediabetes 634201253 R7 3.03 [id number] Donnie Melo [address] [address] 10/03/2023 08:06:08 10/03/2023 09:29:15 Adult health examination 254245496 Z00.00 Depression screening 171 836797 Z13.31 A depression screening was completed via a standardiz ed screening tool. 5 minutes were spent discussing depression screening results and risk factors. Examinatio n of blood pressure 295537204 Z01.30 Diet education 45738508 Z71.3 Counseling 644281455 Z71 .82 Exercise counseling . Patient encouraged to exercise 30 minutes 5 days a week. At [facility] ed risk for falls 977005544 Z91.81 STEADI FAST screening score of . Advance care planning 71 9139109 Z71.89 Body mass index 30+ - obesity 753575090 Z68.37 BMI 37.4 Obesity 684540342 E66.9 Diabetes mellitus 951363 09 E11.9 can stop tajenta once he starts the injectionc ontinue diet, meds and exercise planmonito r glucose Hypertensive disorder 38 750636 I10 Mixed hyperlipidemia 267 767347 E78.2 Neuropathy 262705798 G62 .9 Long-term drug therapy 236529563 Z79.899 Numbness a nd tingling sensation of skin 2243058567 02 R20.2 [id number] Donnie Melo [address] [address] 01/04/2024 08:53:57 01/04/2024 10:06:00 Diabetes mellitus 42180326 E11.9 Blood work completed. increase ozempic to .5mg x 4wks then increase to 1 mg Anxiety 20704510 F41.9 Patient identified triggers for anxiety and impact of anxious thinking on functionin g. Discussed strategies to regulate symptoms and need for compliance with treatment. Gastroesop hageal reflux disease without esophagitis 706122569 K21.9 Continue taking medication s. Hypertensive disorder 38 124810 I10 Discussed checking blood pressure more often. Continue taking heart/ bp medication s. Hypogonadism 12342314 E2 9.1 Blood work completed. Mixed hyperlipidemia 267 085686 E78.2 Continue taking medication s, blood work completed. Neuropathy 117611325 G62 .9 Blood work completed. Fatigue 82707266 R53.83 Blood work completed. Discussed cpap use when sleeping. Abdominal aortic aneurysm 664473201 I71.40 Hypoglycemia 915981410 E 16.2 antonina ordered due to more than 2 hypoglycem ia events [id number] Danielle Aguayo APRN [facility] [address] [place] [address] 02/08/2024 09:53:20 02/08/2024 11:09:03 Testosterone level below reference range 137512582 R89.1 Benign pro static hyperplasia 855361255 N40.1 -continue terazosin 10mg daily. Hypertensive disorder 38 043695 I10 Patient will monitor blood pressure and report if unable to control or if they develop new symptoms. Nocturia 680608968 R35.1 Body mass index 30+ - obesity 595221404 Z68.36 36.8 Obstructiv e sleep apnea syndrome 47584454 G47.33 discussed correlatio n with low freeT, nocturia. Chronic ki dney disease stage 3B 325584494 N18.32 [id number] Donnie Melo APRN [facility] [address] [place] [address] 03/28/2024 08:11:45 03/28/2024 11:49:51 Anxiety 77010563 F41.9 Patient identified triggers for anxiety and impact of anxious thinking on functionin g. Discussed strategies to regulate symptoms and need for compliance with treatment. Diabetes mellitus 280272 09 E11.9 Blood work completed. increase ozempic to 1mg Gastroesop hageal reflux disease without esophagitis 355615981 K21.9 Continue taking medication s. Hypertensive disorder 38 934463 I10 Discussed checking blood pressure more often. Continue taking heart/ bp medication s. Mixed hyperlipidemia 267 227515 E78.2 Continue taking medication s, blood work completed. Neuropathy 489527666 G62 .9 Blood work completed. Sleep apnea 82974552 G47 .30 Hypogonadism 26677108 E2 9.1 Blood work completed. Fatigue 57669399 R53.83 Blood work completed. Discussed cpap use when sleeping. Chronic neck pain 898361 8824 107 M54.2 Screening for malignant neoplasm of respiratory tract 961273790 Z12.2 [id number] Donnie Melo [address] [address] 04/26/2024 14:48:45 04/26/2024 16:16:05 Neuropathy 362063944 G62.9 Blood work completed. Pt compliant with plan of careKasper reviewedme dication compliance discussedL ast uds:Control substance agreement on file Long-term drug therapy 015357333 Z79.899 Chronic ki dney disease 975177797 N18.9 Neck pain 26268055 M54.2 Mild memor y disturbance 264705776 R41.3 [id number] Donnie Melo [address] [address] 06/03/2024 10:53:12 06/03/2024 12:10:09 Neuropathy 492381995 G62.9 titrate dose- med discussed with ptPt compliant with plan of careKasper reviewedme dication compliance discussedL ast uds:Control substance agreement on file [id number] Donnie Melo [address] [address] 07/01/2024 15:04:00 07/01/2024 15:41:34 Neuropathy 479646929 G62.9 titrate dose- med discussed with ptPt compliant with plan of careKasper reviewedme dication compliance discussedL ast uds:Control substance agreement on file [id number] Florinamadison Melo [address] [address] 08/05/2024 14:08:25 08/05/2024 15:19:22 Anxiety 51509633 F41.9 Patient identified triggers for anxiety and impact of anxious thinking on functionin g. Discussed strategies to regulate symptoms and need for compliance with treatment. Ear pressu re sensation 241114527 H93.8X9 Benign pro static hyperplasia 223791924 N40.1 Hypertensive disorder 38 644574 I10 Discussed checking blood pressure more often. Continue taking heart/ bp medication s. Neuropathy 376712490 G62 .9 Pt compliant with plan of careKasper reviewedme dication compliance discussedL ast uds:Control substance agreement on file Abdominal aortic aneurysm 572376544 I71.40 Diabetes mellitus 868727 09 E11.9 Gastroesop hageal reflux disease without esophagitis 968352145 K21.9 Continue taking medication s. Mixed hyperlipidemia 267 954459 E78.2 Continue taking medication s, blood work Neck pain 76769153 M54.2 Generalized rash 3245129 06 R21 [id number] Florinarobsonhelena Leeann [address] [address] 09/20/2024 09:50:35 09/20/2024 10:46:45 Edema of lower extremity 348381691 R60.0 advised pt to go to ed for eval pt declines - states he will if he gets worse [id number] Ermahelena Melo [address] [address] 10/08/2024 08:36:48 10/08/2024 10:25:39 Adult health examination 917324193 Z00.00 Depression screening 171 908069 Z13.31 A depression screening was completed via a standardiz ed screening tool. 5 minutes were spent discussing depression screening results and risk factors. Examinatio n of blood pressure 009308282 Z01.30 Diet education 57531224 Z71.3 Counseling 258488449 Z71 .82 Exercise counseling . Patient encouraged to exercise 30 minutes 5 days a week. At [facility] ed risk for falls 475485815 Z91.81 STEADI FAST screening score of ___11__. Advance care planning 71 5540401 Z71.89 Body mass index 30+ - obesity 898931011 Z68.37 BMI 37.7 Obesity 289936334 E66.9 Generalized rash 9406858 [address] vaccination declined 3417332751 102 Z28.20 [id number] [address] 11/11/2024 08:37:18 11/11/2024 09:30:44 Neuropathy 539311456 G62.9 Pt compliant with plan of careKasper reviewedme dication compliance discussedC ontrol substance agreement on file Body mass index 30+ - obesity 392980805 Z68.38 BMI 38.7 Abdominal aortic aneurysm 458704233 I71.40 [facility] Coronary arteriosclerosis 68305724 I25.10 follow up with cardiology Chronic ki dney disease stage 3B 339607139 N18.32 follow up with neph[facility] [id number] [facility] [address] 12/10/2024 07:59:03 12/10/2024 09:17:43 Neuropathy 706946175 G62.9 Pt compliant with plan of careKasper reviewedme dication compliance discussedC ontrol substance agreement on file Acute bronchitis 1984351 2 J20.9 if worsen or no improvemen t return Chronic th oracic back pain 6314994680 83185 M54.6 follow up with ortho [facility] Health Concerns Section Related Observation LastModified by Organization Detai ls LastModified Time None Recorded Concern Status LastModified by Organization Details LastModified Time None Recorded Advance Directives Directive Y: Payers Insurance Date Sequence Insurance Name Policy Number Policy Stevenson Covered Member ID Stevenson Member ID Guarantor Name 12/08/2024 1 BETITO-OCTAVIO: [place] [employer] [place] - MED[employer] [place] (MEDICARE REPLACEMENT HMO) [id number] Anjum Draper [id number] Anjum Draper 10/01/2023 1 [employer] (MEDICARE REPLACEMENT/A DVANTAGE - PPO) [id number] Anjum Draper [id number] Anjum Draper 10/01/2023 1 [employer] (POS) [id number] Anjum Draper [id number] Anjum Draper 08/05/2024 1 [employer] (MEDICARE REPLACEMENT/A DVANTAGE - PPO) Anjum Draper [id number] Anjum Draper Notes Date Note Type Note Provider Name and Address Organization Details Recorded Time 08/05/2024 text/html 69 year old male who presents to the office today for a follow up onhypertension, anxiety, neuropathy, --needs medication refillshas continued constant neck pain, states at times is having a numbing sensation in left arm and it draws his left hand closed.did NOT have cervical xray or mri that was ordered in mar/apr 2024wants referral to the [facility] [phone], [phone] a rash at times on legs and lower back, has used antibiotic cream and anti itch medicine with no relief.pt states gabapentin is helping with pain,burning Donnie Melo APRN [address], [place], [address], [place] - [facility] 08/05/2024 15:25:52 09/20/2024 text/html 69 year old male who presents to the office today with concerns ofswelling in feet and legs, soaneck painhas 3 aneurysms- surgery in to have injections in neck in October Donnie Melo APRN [address], [place], [address], [place] - [facility] 11/12/2024 10:27:53 10/08/2024 text/html Medicare Annual Wellness VisitReported bypatient.Diet and Nutrition:high caloric intake;high carbohydrate meals Fracture Risk:no history of fractures; no recent explained fracture; no sudden unexplained fractures; no previous musculoskeletal injuries Physical Activity:does not exercise on a regular basis;decreased physical activity;poor physical condition Depression Risk:never feels sad, empty, or tearful; no significant changes in weight; no thoughts of suicide; no history of mood disorders;loss of interest in activities;sleep disturbances or insomnia;agitated;los s of energy;history of depression Orientation:no disorientation to time (9:30); no disorientation to date (10-08-24); no disorientation to place (dr. fountain) Concentration and Memory:decreased concentrating ability;memory lapses or loss;forgetting words Speech/Motor difficulties:no speech difficulties; no difficulty expressing formulated concepts; no difficulty with fine manipulative tasks; no difficulty writing/copying; no slowed reaction time;knocking things over when trying to pick them up Hearing:loss of hearing: in both ears(has hearing aids, but does not wear them) Vision:worse both distance and near(wears glasses) Activities of Daily Living:able to bathe with limited or no assistance; able to contol urination and bowels; able to dress with limited or no assistance; able to feed self with limited or no assistance; able to get out of chair or bed with limited or no assistance; able to groom with limited or no assistance; able to toilet with limited or no assistance Instrumental Activities of Daily Living:able to do house work with limited or no assistance; able to grocery shop with limited or no assistance; able to manage medications with limited or no assistance; able to manage money with limited or no assistance; able to prepare meals with limited or no assistance; able to use the phone with limited or no assistance Falls Risk Assessment:no fall since last visit; no dizziness/vertigo; fall(s) in the past year ;frequent falls while walking(once in awhile) Home Safety:no unsafe eric hazzards; no unsafe gas appliances; working smoke/CO detectors; use of seatbelts; no vision or hearing loss while driving; good lighting in the home;unsafe stairs;does not have hand bars in the bathroom/shower Current level of painPain Present [place] is a 69 year old male who presents to the office today for amedicare annual wellnesshas concerns of having pain/redness on inside of left foot and heel, tender to touch, hard to walkhas concerns of continued neck pain- starts injections in Aprilaneurysm surgery in ress at home with 48 year old son living with them due to alcohol and dui problemshad one son of a drug overdose in 's Donnie Melo, SHANNON [address], [place], [address], [place] - [facility] 10/08/2024 10:15:10 11/11/2024 text/html 69 yr old male presents for discuss medications and refill gabapentin. pt states he wants to wean off gabapentin. pt states he see nephrology the 25 of november. pt states his surgery for AAA is put on hold for now due to him needing cardiac stents. Donnie Melo, SHANNON [address], [place], [address], [place] - [facility] 11/11/2024 09:34:21 12/10/2024 text/html 69 yr old male presents [...] believes its because he picked up the wire spooler right after cath. coughing up thick cream/yellow sputum and chest congestion.has appointment this week with chen singer. just seen nephrology and had labs Donnie TorresSHANNON long [address], [place], [address], [place] - [facility] 12/10/2024 09:13:45
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
[2024-12-15 20:54] LABS: Alanine Aminotransferase 26 U/L (12-78); Albumin/Globulin Ratio 1.2 (1.1-1.8); Alkaline Phosphatase 94 U/L (38-126); Anion Gap 8.9 mEq/L (5-15); Aspartate Amino Transferase 44 U/L (17-59); Bilirubin,Total 0.6 mg/dl (0.2-1.3); Blood Urea Nitrogen 59 mg/dl (9-20); Calcium 9.3 mg/dl (8.4-10.2); Carbon Dioxide 26 mmol/L (22.0-30.0); Estimated Glomerular Filt Rate 12 ml/min (>60); GFR (African American) 14 ML/MIN (>60); Glucose 91 mg/dl (74-100); Total Protein,Serum 6.5 g/dl (6.3-8.2)
[2024-12-15 20:57] LABS: Activated Partial Thrombo Time 27.3 seconds (22.8-30.6); INR 0.98 (0.9-1.1); Prothrombin Time 10.9 seconds (10.1-12.5)
[2024-12-15 20:58] LABS: Creatinine Clearance Estimated 27 mL/min (50-200)
--- NOTE | 2024-12-15 21:13 | PC.NURSE ---
pt taken out of the room to CT
[2024-12-15 21:14] LABS: Ethyl Alcohol < 10 mg/dl (0-10)
[2024-12-15] MEDS: IOPAMIDOL-370 (76%);100ML BOTTLE 160 ML IV (21:18)
[2024-12-15] MEDS: SODIUM CHLORIDE 0.9% 10ML SYR (RAD ONLY) 10 ML IV (21:18)
[2024-12-15] MEDS: 0.9 % SODIUM CHLORIDE 50 ML VIAL IV (21:19)
--- NOTE | 2024-12-15 21:29 | PC.NURSE ---
[address] scan
--- NOTE | 2024-12-15 21:29 | PC.NURSE ---
Pt removed 18G IV from LAC
[2024-12-15 21:51] LABS: HIV Combo NEGATIVE (Negative)
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
[2024-12-15 22:00] LABS: Hepatitis C Ab Qual. W/ RFX NEGATIVE (Negative)
[2024-12-15 22:00] LABS: Anisocytosis 1+; Eosinophils % 4 % (0-3); Lymphocytes % 4 % (10-50); Macrocytosis 1+; Monocytes % 2 % (2-9); Myelocytes % 1 (0-1); Neutrophils % 88 % (42-76); Ovalocytes 1+; Platelet Estimate Normal; Poikilocytosis 1+; Tear Drop Cells 1+; Total Cells Counted 100
[2024-12-15 22:01] LABS: Basophilic Stippling 1+; Polychromasia 1+; Target Cells 1+
[2024-12-15 22:05] LABS: Burr Cells 1+
--- NOTE | 2024-12-15 23:02 | PC.NURSE ---
spoke with [facility] awaiting a call back at this time
--- NOTE | 2024-12-15 23:57 | PC.NURSE ---
called [facility] to see about transferring patient, transferred call to the
--- NOTE | 2024-12-16 00:09 | PC.NURSE ---
Report given to Marianne CHUNG at .
[2024-12-16 00:20] LABS: Microscopic, Urine URINE MICROSCOPIC (MICROSCOPIC)
[2024-12-16 00:32] VITALS: BP 141/77; PULSE 77; RESP 16
[2024-12-16 00:36] VITALS: BP 149/78; PULSE 77; O2SAT 91
[2024-12-16 00:37] LABS: Barbiturates Screen,Urine Negative ng/ml (<200); Benzodiazepines Screen,Urine Negative ng/ml (<200)
[2024-12-16 00:38] LABS: Amphetamine/Metha Screen,Urine Negative ng/ml (<1000)
[2024-12-16 00:39] LABS: Cannabinoid Screen,Urine Positive ng/ml (<50); Cocaine Screen,Urine Negative ng/ml (<300)
[2024-12-16 00:40] LABS: Methadone Screen,Urine Negative ng/ml (<300)
[2024-12-16 00:41] LABS: Opiate Screen,Urine Negative ng/ml (<300); Phencyclidine Screen,Urine Negative ng/ml (<25)
[2024-12-16 00:49] LABS: Appearance,Urine CLEAR (Clear); Bilirubin,Urine Negative (Negative); Blood, Urine 2+ (Negative); Color,Urine YELLOW (Yellow); Glucose,Urine (UA) Negative (Negative); Ketones,Urine Negative (Negative); Leukocyte Esterase,Urine Negative (Negative); Nitrate,Urine Negative (Negative); PH,Urine 5.5 (5.0-8.5); Protein,Urine 3+ (Negative); Specific Gravity, Urine 1.025 (1.005-1.030); Urobilinogen,Urine 0.2 EU/dl (0.2)
[2024-12-16 01:02] LABS: Bacteria,Urine Trace /lpf
[2024-12-16 01:03] VITALS: BP 140/90; PULSE 77; RESP 16
[2024-12-16 02:05] VITALS: BP 143/90; PULSE 78; RESP 16; TEMP 36.9; O2SAT 94
== END 2024-12-16 02:11 | disposition short-term general hospital (02) ==
PROVIDERS: Emergency Provider Emergency Medicine; PCP Nurse Practitioner Family
DX: S22.070A Wedge compression fracture of T9-T10 vertebra, initial encounter for closed fracture (principal); R41.82 Altered mental status, unspecified; G93.49 Other encephalopathy; T42.6X5A Adverse effect of other antiepileptic and sedative-hypnotic drugs, initial encounter; X58.XXXA Exposure to other specified factors, initial encounter
CPT/HCPCS: 70450; 70496; 70498; 71045; 71275; 72125; 72128; 72131; 72170; 74174; 80053; 80074; 80307; 80320; 81001; 85007; 85025; 85027; 85610; 85730; 87389; 93005; 99285; Q9967